=== PATIENT | female | born 1930 | race Caucasian/White ===

== ENCOUNTER 2018-07-18 13:54 | Emergency (ER) | payer MEDICARE ==
--- NOTE | 2018-07-18 14:39 | ER Document Report ---
ED Medical Screen (RME) - General Chief Complaint: Cough Stated Complaint: COUGH Time Seen by Provider: 07/18/18 14:37 Mode of Arrival: Carried Information source: Patient, Relative Notes: 87-year-old female presented to ED for complaint of cough congestion since Monday. She states she was diaphoretic she thought from a fever one night. She states she has been short of breath most of her life because she has a history of asthma and uses an inhaler but is here visiting and did not bring it with her. Patient has a history of asthma pneumonia high blood pressure cholesterol CHF and diabetes. She has also had a hysterectomy back surgery right knee replacement gallbladder removal and appendectomy. Patient is alert oriented respirations regular and unlabored at this time. She is speaking in full sentences. I have greeted and performed a rapid initial assessment of this patient. A comprehensive ED assessment and evaluation of the patient, analysis of test results and completion of medical decision making process will be conducted by an additional ED providers. Dictation of this chart was performed using voice recognition software; therefore, there may be some unintended grammatical errors. TRAVEL OUTSIDE OF THE [place] IN LAST 30 DAYS: No - Related Data Allergies/Adverse Reactions: No Known Allergies Allergy (Unverified 07/18/18 13:55) Past Medical History - Social History Frequency of alcohol use: None Drug Abuse: None - Past Medical History Cardiac Medical History: Reports: Hx Congestive Heart Failure, Hx Hypercholesterolemia, Hx Hypertension Pulmonary Medical History: Reports: Hx Asthma, Hx Pneumonia Endocrine Medical History: Reports: Hx Diabetes Mellitus Type 2 Renal/ Medical History: Denies: Hx Peritoneal Dialysis Past Surgical History: Reports: Hx Appendectomy, Hx Cholecystectomy, Hx Hysterectomy, Hx Orthopedic Surgery - right knee replacement Physical Exam - Vital signs Vitals: Temp Pulse Resp BP Pulse Ox 99.5 F 71 28 H 153/60 H 93 07/18/18 13:59 07/18/18 13:59 07/18/18 13:59 07/18/18 13:59 07/18/18 13:59 Course - Vital Signs Vital signs: Temp Pulse Resp BP Pulse Ox 99.5 F 71 28 H 153/60 H 93 07/18/18 13:59 07/18/18 13:59 07/18/18 13:59 07/18/18 13:59 07/18/18 13:59
--- NOTE | 2018-07-18 15:24 | RADIOLOGY REPORT (SQ) ---
EXAM DESCRIPTION: CHEST 2 VIEWS COMPLETED DATE/TIME: 07/18/2018 3:10 pm REASON FOR STUDY: Cough congested active fever short of breath COMPARISON: None. EXAM PARAMETERS: NUMBER OF VIEWS: two views TECHNIQUE: Digital Frontal and Lateral radiographic views of the chest acquired. RADIATION DOSE: NA LIMITATIONS: none FINDINGS: LUNGS AND PLEURA: No opacities, masses or pneumothorax. No pleural effusion. MEDIASTINUM AND HILAR STRUCTURES: No masses or contour abnormalities. HEART AND VASCULAR STRUCTURES: Massive cardiomegaly BONES: No acute findings. HARDWARE: Clips right upper quadrant post cholecystectomy OTHER: No other significant finding. IMPRESSION: NO ACUTE RADIOGRAPHIC FINDING IN THE CHEST. TECHNICAL DOCUMENTATION: JOB ID: [id number] [employer]- All Rights Reserved Reading location - IP/workstation name: [email or web address]
[2018-07-18 15:37] LABS: ABSOLUTE EOSINOPHILS # (AUTO) 0.1 10^3/uL (0.0-0.6); ABSOLUTE LYMPHOCYTES (AUTO) 1.7 10^3/uL (0.5-4.7); ABSOLUTE MONOCYTES (AUTO) 0.7 10^3/uL (0.1-1.4); ABSOLUTE NEUT (AUTO) 3.9 10^3/uL (1.7-8.2); BASOPHILS % (AUTO) 0.7 % (0-2); EOSINOPHILS % (AUTO) 1.6 % (0-6); HEMATOCRIT 37.9 % (36.0-47.0); HEMOGLOBIN 12.5 g/dL (12.0-15.5); LYMPHOCYTES % (AUTO) 26.1 % (13-45); MEAN CORPUSCULAR HEMOGLOBIN 30.1 pg (27.0-33.4); MEAN CORPUSCULAR HGB CONC 33.1 g/dL (32.0-36.0); MEAN CORPUSCULAR VOLUME 91 fl (80-97); MONOCYTES % (AUTO) 10.8 % (3-13); PLATELET COUNT 198 10^3/uL (150-450); RED BLOOD COUNT 4.16 10^6/uL (3.72-5.28); RED CELL DISTRIBUTION WIDTH 16.3 % (11.5-14.0); SEGMENTED NEUTROPHILS % (AUTO) 60.8 % (42-78); TOTAL CELLS COUNTED % (AUTO) 100 %; WHITE BLOOD COUNT 6.4 10^3/uL (4.0-10.5)
[2018-07-18 15:58] LABS: ALANINE AMINOTRANSFERASE 19 U/L (9-52); ALBUMIN 4.3 g/dL (3.5-5.0); ALKALINE PHOSPHATASE 105 U/L (38-126); ANION GAP 10 (5-19); ASPARTATE AMINO TRANSFERASE 20 U/L (14-36); BILIRUBIN,DIRECT 0.3 mg/dL (0.0-0.4); BILIRUBIN,TOTAL 0.7 mg/dL (0.2-1.3); BLOOD UREA NITROGEN 29 mg/dL (7-20); CALCIUM 9.7 mg/dL (8.4-10.2); CARBON DIOXIDE 26 mmol/L (22-30); CHLORIDE 107 mmol/L (98-107); GLUCOSE 145 mg/dL (75-110); POTASSIUM 4.6 mmol/L (3.6-5.0); SODIUM 143.1 mmol/L (137-145)
[2018-07-18 18:29] VITALS: BP 149/62
[2018-07-18 19:28] LABS: APPEARANCE,URINE SLIGHTLY-CLOUDY; BILIRUBIN,URINE NEGATIVE (NEGATIVE); COLOR,URINE YELLOW; GLUCOSE, URINE NEGATIVE (NEGATIVE); KETONES,URINE NEGATIVE (NEGATIVE); LEUKOCYTE ESTERASE,URINE LARGE (NEGATIVE); NITRITE,URINE NEGATIVE (NEGATIVE); PROTEIN,URINE 100 mg/dL (NEGATIVE); URINE SPECIFIC GRAVITY 1.018; UROBILINOGEN,URINE NEGATIVE mg/dL (<2.0)
== END 2018-07-18 20:30 | disposition left against medical advice (07) ==
LOC: ER 13:54
DX: R05 Cough (principal); J45.909 Unspecified asthma, uncomplicated; T48.906A Underdosing of unspecified agents primarily acting on the respiratory system, initial encounter; Z91.128 Patient's intentional underdosing of medication regimen for other reason; Z91.14 Patient's other noncompliance with medication regimen; R06.02 Shortness of breath; I10 Essential (primary) hypertension; E11.9 Type 2 diabetes mellitus without complications; Z87.01 Personal history of pneumonia (recurrent)
CPT/HCPCS: 36415; 71046; 80053; 81001; 82962; 85025; 87040; 99281

== ENCOUNTER 2018-07-24 14:45 | Emergency (ER) | payer MEDICARE, MEDICAID ==
--- NOTE | 2018-07-24 16:04 | ER Document Report ---
ED Medical Screen (RME) - General Chief Complaint: Shortness Of Breath Stated Complaint: DIFFICULTY BREATHING/COUGH Time Seen by Provider: 07/24/18 15:59 Mode of Arrival: Ambulatory Information source: Patient Notes: Patient presents emergency department with complaints of cough shortness of breath wheeze. Reports symptoms since last week. Reports she was evaluated for the same issues last week but she waited so long she left without treatment. Patient denies fever but reports she had some night sweats. Reports she is coughing up some green sputum. Reports she has used her inhaler without relief of symptoms. I have greeted and performed a rapid initial assessment of this patient. A comprehensive ED assessment and evaluation of the patient, analysis of test results and completion of the medical decision making process will be conducted by additional ED providers. Dictation of this chart was performed using voice recognition software; therefore, there may be some unintended grammatical errors. TRAVEL OUTSIDE OF THE [place] IN LAST 30 DAYS: No - Related Data Allergies/Adverse Reactions: codeine Allergy (Verified 07/24/18 14:52) Past Medical History - Social History Frequency of alcohol use: None Drug Abuse: None - Past Medical History Cardiac Medical History: Reports: Hx Congestive Heart Failure, Hx Hypercholesterolemia, Hx Hypertension Pulmonary Medical History: Reports: Hx Asthma, Hx Pneumonia Endocrine Medical History: Reports: Hx Diabetes Mellitus Type 2 Renal/ Medical History: Denies: Hx Peritoneal Dialysis Past Surgical History: Reports: Hx Appendectomy, Hx Cholecystectomy, Hx Hysterectomy, Hx Orthopedic Surgery - right knee replacement Physical Exam - Vital signs Vitals: Temp Pulse Resp BP Pulse Ox 98.1 F 63 28 H 152/53 H 94 07/24/18 15:17 07/24/18 15:17 07/24/18 15:17 07/24/18 15:17 07/24/18 15:17 Course - Vital Signs Vital signs: Temp Pulse Resp BP Pulse Ox 98.1 F 63 28 H 152/53 H 94 07/24/18 15:17 07/24/18 15:17 07/24/18 15:17 07/24/18 15:17 07/24/18 15:17
[2018-07-24 16:25] LABS: ABSOLUTE EOSINOPHILS # (AUTO) 0.1 10^3/uL (0.0-0.6); ABSOLUTE LYMPHOCYTES (AUTO) 2.5 10^3/uL (0.5-4.7); ABSOLUTE MONOCYTES (AUTO) 0.5 10^3/uL (0.1-1.4); ABSOLUTE NEUT (AUTO) 3.4 10^3/uL (1.7-8.2); BASOPHILS % (AUTO) 0.5 % (0-2); EOSINOPHILS % (AUTO) 2.1 % (0-6); HEMATOCRIT 37.4 % (36.0-47.0); HEMOGLOBIN 12.4 g/dL (12.0-15.5); LYMPHOCYTES % (AUTO) 37.8 % (13-45); MEAN CORPUSCULAR HEMOGLOBIN 30.2 pg (27.0-33.4); MEAN CORPUSCULAR HGB CONC 33.2 g/dL (32.0-36.0); MEAN CORPUSCULAR VOLUME 91 fl (80-97); MONOCYTES % (AUTO) 7.8 % (3-13); PLATELET COUNT 257 10^3/uL (150-450); RED BLOOD COUNT 4.12 10^6/uL (3.72-5.28); RED CELL DISTRIBUTION WIDTH 16.1 % (11.5-14.0); SEGMENTED NEUTROPHILS % (AUTO) 51.8 % (42-78); TOTAL CELLS COUNTED % (AUTO) 100 %; WHITE BLOOD COUNT 6.5 10^3/uL (4.0-10.5)
--- NOTE | 2018-07-24 16:37 | RADIOLOGY REPORT (SQ) ---
EXAM DESCRIPTION: CHEST 2 VIEWS COMPLETED DATE/TIME: 07/24/2018 4:28 pm REASON FOR STUDY: cough sob COMPARISON: 07/18/2018. NUMBER OF VIEWS: Two view. TECHNIQUE: Frontal and lateral radiographic views of the chest acquired. LIMITATIONS: None. FINDINGS: LUNGS AND PLEURA: No opacities, masses or pneumothorax. No pleural effusion. MEDIASTINUM AND HILAR STRUCTURES: No masses. No contour abnormalities. HEART AND VASCULAR STRUCTURES: Heart enlarged without failure. Aorta normal for age. BONES: No acute findings. Degenerative changes in the spine. HARDWARE: Clips in the upper abdomen. OTHER: No other significant finding. IMPRESSION: CARDIAC ENLARGEMENT WITHOUT FAILURE. TECHNICAL DOCUMENTATION: JOB ID: [id number] [employer]- All Rights Reserved Reading location - IP/workstation name: [email or web address]
[2018-07-24 16:46] LABS: ALANINE AMINOTRANSFERASE 20 U/L (9-52); ALBUMIN 4.2 g/dL (3.5-5.0); ALKALINE PHOSPHATASE 103 U/L (38-126); ANION GAP 8 (5-19); ASPARTATE AMINO TRANSFERASE 19 U/L (14-36); BILIRUBIN,DIRECT 0.3 mg/dL (0.0-0.4); BILIRUBIN,TOTAL 0.4 mg/dL (0.2-1.3); BLOOD UREA NITROGEN 35 mg/dL (7-20); CALCIUM 10.1 mg/dL (8.4-10.2); CARBON DIOXIDE 26 mmol/L (22-30); CHLORIDE 109 mmol/L (98-107); CREATINE KINASE 31 U/L (30-135); GLUCOSE 192 mg/dL (75-110); POTASSIUM 4.8 mmol/L (3.6-5.0); SODIUM 142.9 mmol/L (137-145); TOTAL PROTEIN 6.9 g/dL (6.3-8.2)
[2018-07-24] MEDS ORDERED: IPRATROPIUM/ALBUTEROL 0.5-2.5 MG/3 ML AMPUL NEB ONE (18:45)
[2018-07-24] MEDS ORDERED: METHYLPREDNISOLONE ACETATE INJ 40 MG/1 ML ML IM ONE (18:45)
--- NOTE | 2018-07-24 19:03 | EKG REPORT ---
SEVERITY:- ABNORMAL ECG - SINUS RHYTHM FIRST DEGREE AVB. LEFT BUNDLE BRANCH BLOCK : Confirmed by: Joe Lopez MD 24-Jul-2018 19:02:24
--- NOTE | 2018-07-24 20:25 | ER Document Report ---
ED General - General Chief Complaint: Shortness Of Breath Stated Complaint: DIFFICULTY BREATHING/COUGH Time Seen by Provider: 07/24/18 15:59 Primary Care Provider: FAIZAN RAMOS MD [ACTIVE STAFF] - Follow up in 3-5 days (or your primary care. ) Mode of Arrival: Ambulatory Notes: Patient is a 87-year-old female with asthma that presents to the emergency department for chief complaint of shortness of breath and congestion. Patient states she is been having a cough, mucus production and sputum production over the past few days, is gotten progressively worse. She did come to the emergency department this past Monday when she was having some of the symptoms, but did not stay to be seen. She has had some wheezing associated states she does have asthma and has an albuterol inhaler, which she has used a few times, but not on a regular basis. She denies being on any steroid inhalers, not wear oxygen at home. Denies any fevers, chills, night sweats, nausea, vomiting, chest pain, dysuria or hematuria. Past Medical History: Diabetes mellitus, asthma Past Surgical History: Back surgery, cholecystectomy, hysterectomy Social History: Denies tobacco, alcohol or illicit drug use. Family History: Reviewed and noncontributory for presenting illness Allergies: Reviewed, see documented allergy list. REVIEW OF SYSTEMS: Other than noted above, the 12 point review of systems was reviewed with the patient and were negative, all pertinent findings are included in the HPI. PHYSICAL EXAMINATION: Vital signs reviewed, nursing noted reviewed. GENERAL: Elderly female, no acute distress HEAD: Atraumatic, normocephalic. EYES: Eyes appear normal, extraocular movements intact, sclera anicteric, conjunctiva are normal. ENT: nares patent, oropharynx clear without exudates. Moist mucous membranes. NECK: Normal range of motion, supple without lymphadenopathy LUNGS: Bilateral wheezing noted throughout all lung garcia, no acute respiratory distress, no rales or crackles noted. HEART: Regular rate and rhythm without murmurs ABDOMEN: Soft, nontender, normoactive bowel sounds. No rebound, guarding, or rigidity. No masses appreciated. EXTREMITIES: Nontender, good range of motion, trace pedal edema bilaterally. NEUROLOGICAL: No focal neurological deficits. Moves all extremities spontaneously Motor and sensory grossly intact on exam. PSYCH: Normal mood, normal affect. SKIN: Warm, Dry, normal turgor, no rashes or lesions noted on exposed skin TRAVEL OUTSIDE OF THE [place] IN LAST 30 DAYS: No - Related Data Allergies/Adverse Reactions: codeine Allergy (Verified 07/24/18 14:52) Past Medical History - General Information source: Patient - Social History Smoking Status: Never Smoker Frequency of alcohol use: None Drug Abuse: None Family History: Reviewed & Not Pertinent Patient has suicidal ideation: No Patient has homicidal ideation: No - Past Medical History Cardiac Medical History: Reports: Hx Congestive Heart Failure, Hx Hy percholesterolemia, Hx Hypertension Pulmonary Medical History: Reports: Hx Asthma, Hx Pneumonia Endocrine Medical History: Reports: Hx Diabetes Mellitus Type 2 Renal/ Medical History: Denies: Hx Peritoneal Dialysis Past Surgical History: Reports: Hx Appendectomy, Hx Cholecystectomy, Hx Hysterectomy, Hx Orthopedic Surgery - right knee replacement Physical Exam - Vital signs Vitals: Temp Pulse Resp BP Pulse Ox 98.1 F 63 28 H 152/53 H 94 07/24/18 15:17 07/24/18 15:17 07/24/18 15:17 07/24/18 15:17 07/24/18 15:17 Course - Re-evaluation Re-evalutation: Patient seen and examined vital signs reviewed. Laboratory data and/or imaging were ordered as appropriate for the patient's presenting symptoms and complaint, with consideration of any critical or life threatening conditions that may be associated with their obtained history and ex am as noted above. Patient was treated with DuoNeb breathing treatments, and IM Depo-Medrol, given the patient's diabetic, did not want to place her on prednisone and risk fluctuations in her glucose numbers, but I did advised her that her glucose could go up, and she should be monitoring her sugar at home closely. Results were reviewed when available and demonstrated negative chest x-ray for infiltrative process, blood work was essentially unremarkable, EKG was nonischemic pattern. The patient was re-evaluated and was stable, and much improved, lung sounds improved and she felt overall much better. Evaluation was most consistent with acute exacerbation of asthma, will discharge the patient home with a spacer, advised using her albuterol 4 times daily for the next 5 days and to follow-up with her primary care. Results were discussed with the patient at this point, after careful cons ideration I feel that that patient can be discharged from the emergency department, the patient was educated treatments and reasons to return to the emergency department based on their presumed diagnosis as noted above, they were advised to followup with a primary care physician in 2-3 days. Patient was agreeable to plan of care. *Note is created using voice recognition software and may contain spelling, syntax or grammatical errors. Laboratory 07/24/18 07/24/18 07/24/18 16:12 16:12 16:12 WBC 6.5 RBC 4.12 Hgb 12.4 Hct 37.4 MCV 91 MCH 30.2 MCHC 33.2 RDW 16.1 H Plt Count 257 Seg Neutrophils % 51.8 Lymphocytes % 37.8 Monocytes % 7.8 Eosinophils % 2.1 Basophils % 0.5 Absolute Neutrophils 3.4 Absolute Lymphocytes 2.5 Absolute Monocytes 0.5 Absolute Eosinophils 0.1 Absolute Basophils 0.0 Sodium 142.9 Potassium 4.8 Chloride 109 H Carbon Dioxide 26 Anion Gap 8 BUN 35 H Creatinine 1.39 H Est GFR ( Amer) 43 L Est GFR (Non-Af Amer) 36 L Glucose 192 H Calcium 10.1 Total Bilirubin 0.4 Direct Bilirubin 0.3 Neonat Total Bilirubin Not Reportable Neonat Direct Bilirubin Not Reportable Neonat Indirect Bili Not Reportable AST 19 ALT 20 Alkaline Phosphatase 103 Creatine Kinase 31 Troponin I 0.019 Total Protein 6.9 Albumin 4.2 Chest X-Ray 07/24/18 16:03 IMPRESSION: CARDIAC ENLARGEMENT WITHOUT FAILURE. - Vital Signs Vital signs: Temp Pulse Resp BP Pulse Ox 98.1 F 59 L 20 137/76 H 99 07/24/18 18:20 07/24/18 18:20 07/24/18 18:20 07/24/18 18:20 07/24/18 18:20 - Laboratory Result Diagrams: 07/24/18 16:12 07/24/18 16:12 Laboratory results interpreted by me: 07/24/18 07/24/18 16:12 16:12 RDW 16.1 H Chloride 109 H BUN 35 H Creatinine 1.39 H Est GFR ( Amer) 43 L Est GFR (Non-Af Amer) 36 L Glucose 192 H - EKG Interpretation by Me Additional EKG results interpreted by me: EKG demonstrates sinus rhythm with first-degree AV block, with a ventricular rate of 85 bpm, presence of left bundle branch block, QTC prolonged at 562 ms and left axis deviation, no ST elevation present. No prior for comparison. Discharge - Discharge Clinical Impression: Acute asthma exacerbation Qualifiers: Asthma severity: unspecified severity Asthma persistence: unspecified Qualified Code(s): J45.901 - Unspecified asthma with (acute) exacerbation Condition: Stable Disposition: HOME, SELF-CARE Instructions: Asthma ([facility]) Additional Instructions: Please use your albuterol inhaler, 2 puffs 4 times daily for the next 5 days, and then every 4 hours as needed after that. Use the spacer with this, when you are using the spacer, take 6 to 8 breaths, after actuating the inhaler. If your symptoms are not improving over the next 24 to 48 hours, do not hesitate to return to the emergency department immediately, otherwise please follow-up with your primary care physician in the next 2 to 3 days. Referrals: FAIZAN RAMOS MD [ACTIVE STAFF] - Follow up in 3-5 days (or your primary care. )
[2018-07-24 20:51] VITALS: BP 149/42
== END 2018-07-24 20:50 | disposition home or self-care (01) ==
LOC: ER 14:45
DX: J45.901 Unspecified asthma with (acute) exacerbation (principal); I50.9 Heart failure, unspecified; E78.00 Pure hypercholesterolemia, unspecified; I11.0 Hypertensive heart disease with heart failure; E11.9 Type 2 diabetes mellitus without complications; Z90.49 Acquired absence of other specified parts of digestive tract; Z90.710 Acquired absence of both cervix and uterus; Z96.651 Presence of right artificial knee joint; Z88.6 Allergy status to analgesic agent
CPT/HCPCS: 93005; 94640; 99285; 96372; 36415; 82550; 85025; 80053; 84484; 71046; 93010; J1030; A9270; J7620

== ENCOUNTER 2019-10-21 22:11 | Inpatient (IN) | payer MEDICARE, MEDICAID ==
[2019-10-21] MEDS ORDERED: METHYLPREDNISOLONE INJ 125 MG/2 ML SDV IV ONE (22:42)
[2019-10-21] MEDS ORDERED: IPRATROPIUM/ALBUTEROL 0.5-2.5 MG/3 ML AMPUL NEB ONE (22:43)
[2019-10-21 22:45] LABS: ABSOLUTE BASOPHILS # (AUTO) 0.1 10^3/uL (0.0-0.2); ABSOLUTE EOSINOPHILS # (AUTO) 0.2 10^3/uL (0.0-0.6); ABSOLUTE LYMPHOCYTES (AUTO) 2.1 10^3/uL (0.5-4.7); ABSOLUTE MONOCYTES (AUTO) 0.7 10^3/uL (0.1-1.4); ABSOLUTE NEUT (AUTO) 6.1 10^3/uL (1.7-8.2); BASOPHILS % (AUTO) 1.4 % (0-2); EOSINOPHILS % (AUTO) 1.7 % (0-6); HEMATOCRIT 38.5 % (36.0-47.0); HEMOGLOBIN 13.1 g/dL (12.0-15.5); LYMPHOCYTES % (AUTO) 22.7 % (13-45); MEAN CORPUSCULAR HEMOGLOBIN 31.3 pg (27.0-33.4); MEAN CORPUSCULAR HGB CONC 34.2 g/dL (32.0-36.0); MEAN CORPUSCULAR VOLUME 92 fl (80-97); MONOCYTES % (AUTO) 7.4 % (3-13); PLATELET COUNT 225 10^3/uL (150-450); RED CELL DISTRIBUTION WIDTH 15.5 % (11.5-14.0); SEGMENTED NEUTROPHILS % (AUTO) 66.8 % (42-78); TOTAL CELLS COUNTED % (AUTO) 100 %; WHITE BLOOD COUNT 9.1 10^3/uL (4.0-10.5)
[2019-10-21] MEDS ORDERED: MAGNESIUM SULFATE/D5W 1 GM/100 ML RTUPB IV ONE (22:45)
--- NOTE | 2019-10-21 22:48 | ER Document Report ---
ED General - General Chief Complaint: Shortness Of Breath Stated Complaint: SHORTNESS OF BREATH Time Seen by Provider: 10/21/19 22:25 TRAVEL OUTSIDE OF THE [place] IN LAST 30 DAYS: No - HPI Notes: Patient is an 89-year-old female with a history of asthma who presents to the emergency department for evaluation of shortness of breath. She states that has been ongoing for the last week, but worse for the last 3 days. No fevers or chills. No nausea or vomiting. She has chronic pain in her legs which she states is no different. She describes it as an aching, states is a 3 out of 5. She has been taking her medications as prescribed. - Related Data Allergies/Adverse Reactions: codeine Allergy (Verified 07/24/18 14:52) Home Medications: Neurontin, Zantac, spironolactone, amlodipine, Lexapro, methotrexate, Coreg, pantoprazole, folate, Levemir, NovoLog Past Medical History - General Information source: Patient - Social History Smoking Status: Never Smoker Drug Abuse: None Family History: Reviewed & Not Pertinent - Past Medical History Cardiac Medical History: Reports: Hx Congestive Heart Failure, Hx Hypercholesterolemia, Hx Hypertension Pulmonary Medical History: Reports: Hx Asthma, Hx Pneumonia Endocrine Medical History: Reports: Hx Diabetes Mellitus Type 2 Renal/ Medical History: Denies: Hx Peritoneal Dialysis Past Surgical History: Reports: Hx Appendectomy, Hx Cholecystectomy, Hx Hysterectomy, Hx Orthopedic Surgery - right knee replacement Review of Systems - Review of Systems Constitutional: No symptoms reported EENT: No symptoms reported Cardiovascular: No symptoms reported Respiratory: See HPI Gastrointestinal: No symptoms reported Genitourinary: No symptoms reported Musculoskeletal: See HPI Skin: No symptoms reported Neurological/Psychological: No symptoms reported Physical Exam - Vital signs Vitals: Temp Resp BP Pulse Ox 98.4 F 20 166/63 H 99 10/21/19 22:18 10/21/19 22:18 10/21/19 22:18 10/21/19 22:18 - Notes Notes: This is an 89-year-old female who appears her stated age, in a moderate amount of distress. She is tachypneic with increased use of accessory muscles and work of breathing. Vital signs reviewed, please refer to chart. Head is normocephalic, atraumatic. Pupils equal round, reactive to light. Neck is supple without meningismus. Heart is irregularly irregular. Lungs reveal diminished expiratory sounds, wheezes in the right base. Abdomen is soft, nontender, normoactive bowel sounds throughout. Extremities without cyanosis, clubbing. Posterior calves are nontender. Peripheral pulses are equal. Skin is warm and dry. Patient is awake, alert, neurological exam is nonfocal. Course - Re-evaluation Re-evalutation: 10/21/19 22:48 Patient presents to the emergency department for evaluation. Laboratory investi gations are ordered. 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 Due to her increased work of breathing, I did order BiPAP. She is ordered magnesium and a DuoNeb, as well as Solu-Medrol. She is currently stable, we will continue to monitor. 10/22/19 03:01 Clinically patient did have some improvement for some time. She came off of the BiPAP. Decision was made to trend out her troponins that she did have very mild elevation. During the course of waiting, the patient tried to speak and reposition herself in the bed. At that point she became more acutely short of breath. Decision was made to place the patient back on BiPAP. Her troponin did trend up mildly, but not significantly. I do believe this indeterminately elevated troponin is secondary to a troponin leak/intermittent atrial fibrillation. I will treat her with Lovenox. I spoke with Dr. Cox, who will admit the patient for further care. 10/22/19 03:04 Please note the regarding the x-ray, I did read that radiology interpreted this airspace disease bilaterally. I do not have an indication that this is pneumonia. The patient has had a very minimal dry cough that started on this evening. She denies any fevers. She has no leukocytosis. I suspect this is all secondary to her asthma and some mild fluid overload from new onset atrial fibrillation. - Vital Signs Vital signs: Temp Pulse Resp BP Pulse Ox 98.4 F 21 H 167/50 H 96 10/21/19 22:18 10/22/19 02:01 10/22/19 02:01 10/22/19 02:01 - Laboratory Result Diagrams: 10/21/19 22:27 10/21/19 22:27 Laboratory results interpreted by me: 10/21/19 10/21/19 10/21/19 22:27 22:27 22:27 RDW 15.5 H BUN 27 H Creatinine 1.40 H Est GFR ( Amer) 43 L Est GFR (MDRD) Non-Af 35 L Glucose 138 H NT-Pro-B Natriuret Pep 5830 H - Diagnostic Test Radiology reviewed: Image reviewed, Reports reviewed Radiology results interpreted by me: 10/22/19 03:04 Chest X-Ray 10/21/19 22:23 IMPRESSION: Cardiomegaly with bibasilar airspace opacities. copyright 2010 [id number]- All Rights Reserved - EKG Interpretation by Me Additional EKG results interpreted by me: 10/22/19 03:05 Atrial fibrillation with a rate of 124 bpm. Left axis deviation. Left bundle branch block. There is a change from prior study, and that last study showed sinus mechanism. Discharge - Discharge Clinical Impression: New onset atrial fibrillation Acute asthma exacerbation Qualifiers: Asthma severity: moderate Condition: Stable Disposition: ADMITTED INPATIENT Admitting Provider: Brooke (Hospitalist) Unit Admitted: Telemetry
[2019-10-21 22:56] LABS: ALBUMIN 4.7 g/dL (3.5-5.0); ALKALINE PHOSPHATASE 96 U/L (38-126); ANION GAP 9 (5-19); ASPARTATE AMINO TRANSFERASE 29 U/L (14-36); BILIRUBIN,DIRECT 0.3 mg/dL (0.0-0.4); BILIRUBIN,TOTAL 0.8 mg/dL (0.2-1.3); BLOOD UREA NITROGEN 27 mg/dL (7-20); CALCIUM 9.9 mg/dL (8.4-10.2); CARBON DIOXIDE 26 mmol/L (22-30); CHLORIDE 106 mmol/L (98-107); GLUCOSE 138 mg/dL (75-110); TOTAL PROTEIN 7.7 g/dL (6.3-8.2)
--- NOTE | 2019-10-21 23:03 | RADIOLOGY REPORT (SQ) ---
EXAM DESCRIPTION: XR CHEST 1 VIEW COMPLETED DATE/TME: 10/21/2019 22:23 CLINICAL HISTORY: 89 years, Female, sob COMPARISON: [id number] chest NUMBER OF VIEWS: 1 TECHNIQUE: Portable chest LIMITATIONS: None. FINDINGS: Cardiomegaly. Osteopenia. Atheromatous change of the thoracic aorta. No pneumothorax. Hazy opacities over each lung base. IMPRESSION: Cardiomegaly with bibasilar airspace opacities. copyright 2010 [employer]- All Rights Reserved
[2019-10-21 23:17] LABS: TROPONIN I 0.035 ng/mL
[2019-10-22] MEDS ORDERED: ENOXAPARIN SODIUM INJ 80 MG/0.8 ML DISP.SYRIN SUBCUT ONE (03:09)
--- NOTE | 2019-10-22 03:41 | PDOC H&P ---
History of Present Illness Admission Date/PCP: 10/22/19 03:15 History of Present Illness: LISS BHAGAT is a 89 year old female past medical history of CHF, hypertension, diabetes, COPD, who is visiting out of town per family, presenting to ED complaining of progressively worsening shortness of breath, for the last several days. She has also noted that her left lower extremity is swelling more than usual. In ED patient was noted to be tachypneic, hypoxic, elevated BNP and mildly elevated troponins, and A. fib RVR, patient was started on breathing treatments however patient was noted to drop her PO2 once off of BiPAP. Hospital was consulted for admission. On my encounter patient is comfortably sitting bed no apparent distress, wearing BiPAP, alert and oriented, very pleasant and cooperative with physical examination, patient is stating that she gets frequent hospitalization for CHF exacerbation but this time she feels more short of breath, she is stating that for some reason she is taken off of aspirin because she was told by her athletic monitor that she does not need it, she said that she has some kind of heart rhythm problem however not sure if she has history of A. fib RVR, patient is stating that she is on several medication however does not recall the names, she is seeing a athletic monitor Past Medical History Cardiac Medical History: Reports: Congestive Heart Failure, Hyperlipidema, Hypertension Pulmonary Medical History: Reports: Asthma, Pneumonia Endocrine Medical History: Reports: Diabetes Mellitus Type 2 Past Surgical History Past Surgical History: Reports: Appendectomy, Cholecystectomy, Hysterectomy, Orthopedic Surgery - right knee replacement Social History Smoking Status: Never Smoker Family History Family History: Reviewed & Not Pertinent Parental Family History Reviewed: Yes Children Family History Reviewed: Yes Sibling(s) Family History Reviewed.: Yes Medication/Allergy Allergies/Adverse Reactions: codeine Allergy (Verified 07/24/18 14:52) Review of Systems Review of Systems: as per hpi Physical Exam Vital Signs: Temp Pulse Resp BP Pulse Ox 98.4 F 21 H 167/50 H 96 10/21/19 22:18 10/22/19 02:01 10/22/19 02:01 10/22/19 02:01 Intake & Output 10/20/19 10/21/19 10/22/19 06:59 06:59 06:59 Intake Total 100 Balance 100 Weight 76.1 kg General appearance: PRESENT: obese Respiratory exam: PRESENT: crackles, wheezes. ABSENT: rales, rhonchi Cardiovascular exam: PRESENT: RRR. ABSENT: diastolic murmur, rubs, systolic murmur GI/Abdominal exam: PRESENT: normal bowel sounds, soft. ABSENT: distended, guarding, mass, organolmegaly, rebound, tenderness Neurological exam: PRESENT: alert, awake, oriented to person, oriented to place, oriented to time, oriented to situation, CN II-XII grossly intact. ABSENT: motor sensory deficit Results Laboratory Results: 10/21/19 22:27 10/21/19 22:27 10/21/19 10/21/19 22:27 22:27 WBC 9.1 RBC 4.20 Hgb 13.1 Hct 38.5 MCV 92 MCH 31.3 MCHC 34.2 RDW 15.5 H Plt Count 225 Seg Neutrophils % 66.8 Sodium 140.9 Potassium 5.0 Chloride 106 Carbon Dioxide 26 Anion Gap 9 BUN 27 H Creatinine 1.40 H Est GFR ( Amer) 43 L Glucose 138 H Calcium 9.9 Total Bilirubin 0.8 AST 29 Alkaline Phosphatase 96 Total Protein 7.7 Albumin 4.7 10/21/19 10/22/19 22:27 01:46 Troponin I 0.035 0.038 NT-Pro-B Natriuret Pep 5830 H Impressions: Chest X-Ray 10/21/19 22:23 IMPRESSION: Cardiomegaly with bibasilar airspace opacities. copyright 2010 [employer]- All Rights Reserved Assessment and Plan - Diagnosis (1) New onset atrial fibrillation Is this a current diagnosis for this admission?: Yes Plan: Paroxysmal, likely due to acute CHF and COPD exacerbation. Not sure if this is acute onset as patient is stating that she does have some history of heart rhythm problem but does not remember what. She is not on chronic anticoagulation and is stating that she was taken off of aspirin by her athletic monitor was told that she does not need it anymore. Will need to get medical records. Will admit to telemetry, start on therapeutic Lovenox, beta-blockers, treat underlying acute respiratory failure. We will consult cardiology. (2) Acute exacerbation of CHF (congestive heart failure) Qualifiers: Heart failure type: systolic Qualified Code(s): I50.23 - Acute on chronic systolic (congestive) heart failure Is this a current diagnosis for this admission?: Yes Plan: Patient endorse history of CHF and frequent hospitalization for her CHF. Denies any chest pain, presented with shortness of breath mildly elevated troponins and BNP. Admit to telemetry, IV diuretics, cardiac diet, beta-blockers, EMMA. (3) Diabetes Qualifiers: Diabetes mellitus type: type 2 Is this a current diagnosis for this admission?: Yes Plan: Diabetic diet, long-acting insulin, sliding scale insulin, Accu-Chek, hypoglycemia protocol. (4) Elevated troponin Is this a current diagnosis for this admission?: Yes Plan: Denies any chest pain. No acute EKG changes. Likely due to demand mismatch. Admit to telemetry, p.o. aspirin, trend troponins, beta-blockers, EMMA, statins. (5) Acute kidney injury superimposed on CKD Is this a current diagnosis for this admission?: Yes Plan: Prerenal, likely due to low p.o. intake. Monitor electrolytes and volume status. Replace electrolytes as needed. Avoid nephrotoxic meds. (6) Acute respiratory failure with hypoxia Is this a current diagnosis for this admission?: Yes Plan: Likely due to acute CHF exacerbation complicated by underlying COPD. Plan as per above. - Time Time Spent with patient: 35 or more minutes Medications reviewed and adjusted accordingly: Yes Anticipated Discharge Disposition: Home with Home Health Anticipated Discharge Timeframe: within 36 hours
[2019-10-22] MEDS ORDERED: METOPROLOL TARTRATE PF/INJ 5 MG/5 ML SDV IV PRN (03:43)
[2019-10-22] MEDS ORDERED: TEMAZEPAM 7.5 MG CAPSULE PO PRN (03:44)
[2019-10-22] MEDS ORDERED: ONDANSETRON HCL INJ/PF 4 MG/2 ML SDV IV PRN (03:44)
[2019-10-22] MEDS ORDERED: MAGNESIUM HYDROXIDE SUSP 30 ML UDCUP PO PRN (03:44)
[2019-10-22] MEDS: METHYLPREDNISOLONE INJ 40 MG/1 ML SDV IV SCH ×3 (06:08→21:15)
[2019-10-22] MEDS ORDERED: IPRATROPIUM/ALBUTEROL 0.5-2.5 MG/3 ML AMPUL NEB PRN (06:32)
--- NOTE | 2019-10-22 06:35 | EKG REPORT ---
SEVERITY:- ABNORMAL ECG - ATRIAL FLUTTER, A-RATE 224 LEFT BUNDLE BRANCH BLOCK : Confirmed by: Joe Lopez MD 22-Oct-2019 06:35:44
[2019-10-22] MEDS ORDERED: IPRATROPIUM/ALBUTEROL 0.5-2.5 MG/3 ML AMPUL NEB SCH (08:00)
[2019-10-22] MEDS: IPRATROPIUM/ALBUTEROL 0.5-2.5 MG/3 ML AMPUL NEB SCH ×3 (08:20→20:17)
[2019-10-22 09:11] LABS: APPEARANCE,URINE SLIGHTLY-CLOUDY; BILIRUBIN,URINE NEGATIVE (NEGATIVE); COLOR,URINE YELLOW; GLUCOSE, URINE 50 mg/dL (NEGATIVE); KETONES,URINE NEGATIVE (NEGATIVE); LEUKOCYTE ESTERASE,URINE MODERATE (NEGATIVE); NITRITE,URINE NEGATIVE (NEGATIVE); PROTEIN,URINE 100 mg/dL (NEGATIVE); URINE SPECIFIC GRAVITY 1.017; UROBILINOGEN,URINE NEGATIVE mg/dL (<2.0)
[2019-10-22] MEDS ORDERED: INSULIN REG, HUMAN 100 UNIT/ML 3 ML VIAL (PYX) ONE (09:33)
[2019-10-22] MEDS: FUROSEMIDE INJ/PF 20 MG/2 ML SDV IV SCH (09:35)
[2019-10-22] MEDS: ASPIRIN 81 MG TABLET, CHEWABLE PO SCH (09:36)
[2019-10-22] MEDS: FAMOTIDINE 20 MG TABLET PO SCH (09:36)
[2019-10-22] MEDS: DOCUSATE SODIUM 100 MG CAPSULE PO SCH (09:36)
[2019-10-22] MEDS ORDERED: GLUCAGON,HUMAN RECOMB 1 MG INJ IM PRN (10:00)
[2019-10-22] MEDS ORDERED: DEXTROSE 50%-WATER SYRINGE 25 GM/50 ML DOSE IV PRN (10:00)
[2019-10-22] MEDS ORDERED: DEXTROSE 40% GEL 15 GM TUBE X 2 PO PRN (10:00)
[2019-10-22] MEDS ORDERED: FAMOTIDINE 20 MG TABLET PO SCH (10:00)
[2019-10-22] MEDS ORDERED: DEXTROSE 50%-WATER SYRINGE 12.5 GM/25 ML DOSE IV PRN (10:00)
[2019-10-22] MEDS ORDERED: DEXTROSE 40% GEL 15 GM TUBE PO PRN (10:00)
[2019-10-22] MEDS: INSULIN REG, HUMAN 100 UNIT/ML 3 ML VIAL (PYX) SUBCUT SCH ×2 (11:36→16:12)
--- NOTE | 2019-10-22 14:11 | PDOC PROGRESS REPORT ---
Subjective Progress Note for:: 10/22/19 Subjective:: Resting with nasal cannula in place. Appears comfortable at complete rest. Accu-Cheks have been very high. Reason For Visit: ACUTE RESPIRATORY FAILURE,ACUTE CHF EXACERBATION, Physical Exam Vital Signs: Temp Pulse Resp BP Pulse Ox 97.8 F 66 16 131/46 H 100 10/22/19 13:00 10/22/19 13:00 10/22/19 13:00 10/22/19 13:00 10/22/19 13:00 Intake & Output 10/21/19 10/22/19 10/23/19 06:59 06:59 06:59 Intake Total 100 520 Balance 100 520 Weight 76.1 kg General appearance: PRESENT: cooperative, mild distress, well-developed Head exam: PRESENT: atraumatic, normocephalic Ear exam: PRESENT: normal external ear exam. ABSENT: bleeding, drainage Mouth exam: PRESENT: moist, tongue midline Respiratory exam: PRESENT: rales - Both bases. Right greater than left, symmetrical, unlabored. ABSENT: rhonchi, tachypnea, wheezes Cardiovascular exam: PRESENT: RRR, +S1, +S2, systolic murmur GI/Abdominal exam: PRESENT: normal bowel sounds, soft. ABSENT: distended, guar ding, tenderness Rectal exam: PRESENT: deferred Extremities exam: ABSENT: pedal edema Neurological exam: PRESENT: alert, awake, oriented to person, oriented to place, oriented to time, oriented to situation, CN II-XII grossly intact. ABSENT: altered Psychiatric exam: PRESENT: appropriate affect. ABSENT: agitated, anxious Focused psych exam: ABSENT: delusional, paranoid, restlessness Skin exam: PRESENT: dry, normal color, warm. ABSENT: rash Results Laboratory Results: 10/21/19 22:27 10/21/19 22:27 10/21/19 10/21/19 10/22/19 22:27 22:27 09:00 WBC 9.1 RBC 4.20 Hgb 13.1 Hct 38.5 MCV 92 MCH 31.3 MCHC 34.2 RDW 15.5 H Plt Count 225 Seg Neutrophils % 66.8 Sodium 140.9 Potassium 5.0 Chloride 106 Carbon Dioxide 26 Anion Gap 9 BUN 27 H Creatinine 1.40 H Est GFR ( Amer) 43 L Glucose 138 H Calcium 9.9 Total Bilirubin 0.8 AST 29 Alkaline Phosphatase 96 Total Protein 7.7 Albumin 4.7 Urine Color YELLOW Urine Appearance SLIGHTLY-CLOUDY Urine pH 5.0 Ur Specific [place] 1.017 Urine Protein 100 H Urine Glucose (UA) 50 H Urine Ketones NEGATIVE Urine Blood SMALL H Urine Nitrite NEGATIVE Ur Leukocyte Esterase MODERATE H Urine WBC (Auto) 8 Urine RBC (Auto) 1 10/21/19 10/22/19 10/22/19 22:27 01:46 05:50 Troponin I 0.035 0.038 0.030 NT-Pro-B Natriuret Pep 5830 H Impressions: Chest X-Ray 10/21/19 22:23 IMPRESSION: Cardiomegaly with bibasilar airspace opacities. copyright 2010 [facility]- All Rights Reserved Assessment and Plan - Diagnosis (1) Acute respiratory failure with hypoxia Is this a current diagnosis for this admission?: Yes Plan: The patient required a short window of BiPAP therapy earlier today. She remains on oxygen. Nursing reports that she is extremely fatigued with minimal exertion and has desaturated with any attempts of room air. She will likely qualify for home oxygen therapy. They will try and perform a walking oximetry. (2) Acute on chronic combined systolic (congestive) and diastolic (congestive) heart failure Is this a current diagnosis for this admission?: Yes Plan: We were able to obtain her echocardiogram from [facility]. It showed an abnormal ejection fraction of only 50% and grade 1/4 diastolic dysfunction. She is on spironolactone, carvedilol, furosemide and Norvasc. I am going to discontinue the Norvasc and start low-dose lisinopril. We will need to monitor renal function on the EMMA inhibitor. (3) Acute exacerbation of COPD with asthma Is this a current diagnosis for this admission?: Yes Plan: The patient is on Symbicort at home. Here she is on intravenous Solu-Medrol which will require close monitoring of her Accu-Cheks and insulin requirements. She is also on scheduled nebulizers. She can return to her Symbicort after discharge. She might also need Spiriva. We are obtaining a pulse oximetry study but I firmly believe she will easily qualify for home oxygen therapy. (4) New onset atrial fibrillation Is this a current diagnosis for this admission?: Yes Plan: Currently with excellent rate control on carvedilol. She is also on renally adjusted apixaban 2.5 mg twice daily. (5) Hyperglycemia due to diabetes mellitus Is this a current diagnosis for this admission?: Yes Plan: Now that long-acting and pre-meal insulin doses are established her Accu-Cheks are in the 200s. As she tapers off of steroids this will improve as well. Continue Accu-Cheks, baseline diabetes regimen as well as sliding scale coverage. (6) Acute kidney injury superimposed on CKD Is this a current diagnosis for this admission?: Yes Plan: It appears that she may have had stage III chronic kidney disease previously. With her history of diabetes this is not an unreasonable assumption. She is currently at a GFR of only 35. We will continue to try and improve this. Hopefully low-dose EMMA inhibitors will help as well. (7) Elevated troponin Is this a current diagnosis for this admission?: Yes Plan: She experienced minimal elevation in her troponins but these have receded. - Time Time Spent with patient: 15-24 minutes Medications reviewed and adjusted accordingly: Yes Anticipated Discharge Disposition: Home with Home Health Anticipated Discharge Timeframe: within 72 hours
[2019-10-22] MEDS ORDERED: PROMETHAZINE HCL 25 MG TABLET PO PRN (14:49)
[2019-10-22] MEDS ORDERED: (PENDING PHARMACY ID) (Insulin Aspart [Novolog Flexpen] 15 UNITS) SQ SCH (16:00)
[2019-10-22] MEDS: INSULIN LISPRO 100 UNIT/ML 3 ML VIAL SUBCUT SCH ×2 (16:11→23:04)
[2019-10-22] MEDS: APIXABAN 2.5 MG TABLET PO SCH (17:47)
--- NOTE | 2019-10-22 18:00 | RADIOLOGY REPORT (SQ) ---
EXAM DESCRIPTION: VENOUS UNILATERAL LOWER IMAGES COMPLETED DATE/TIME: 10/22/2019 5:03 pm REASON FOR STUDY: LLE swelling N30.00 ACUTE CYSTITIS WITHOUT HEMATURIA COMPARISON: None. TECHNIQUE: Dynamic and static garzon scale and color images acquired of the left leg venous system. Se lected spectral images acquired with additional compression and augmentation maneuvers. The contralat eral common femoral vein and saphenofemoral junction were also imaged. Images stored on PACS. LIMITATIONS: None. FINDINGS: COMMON FEMORAL: Normal phasicity, compression and augmentation. No visualized echogenic ma terial on garzon scale. No defects on color images. FEMORAL: Normal compression and augmentation. No visualized echogenic material on garzon scale. No defe cts on color images. POPLITEAL: Normal compression, augmentation. No visualized echogenic material on garzon scale. No defec ts on color images. CALF VESSELS: Normal compression, augmentation. No visualized echogenic material on garzon scale. No de fects on color images. GSV and SSV: Normal compression, augmentation. No visualized echogenic material on garzon scale. No def ects on color images. ANY DEEP VENOUS INSUFFICIENCY: Not evaluated. ANY EVIDENCE OF POPLITEAL CYST: No. OTHER: No other significant finding. CONTRALATERAL COMMON FEMORAL VEIN AND SAPHENOFEMORAL JUNCTION: Normal phasicity, compression and augmentation. No visualized echogenic material on garzon scale. No de fects on color images. IMPRESSION: NO EVIDENCE DVT OR SVT IN THE LEFT LEG. TECHNICAL DOCUMENTATION: JOB ID: [id number] 2010 [employer]- All Rights Reserved Reading location - IP/workstation name: [email or web address]
[2019-10-22] MEDS ORDERED: INSULIN LISPRO 100 UNIT/ML 3 ML VIAL SUBCUT ONE (18:30)
--- NOTE | 2019-10-22 18:33 | PDOC CONSULTATION ---
Consultation-Blank Consultation: CARDIOLOGY CONSULTATION by Dr. Andre Baker on 10/22/2019. Patient seen at 4 PM. 60 minutes spent with patient more than 50% of time spent in direct patient care. CONSULT REQUESTING PHYSICIAN: [facility]ivel, [facility]. REASON FOR CONSULTATION: Patient with atrial fibrillation of questionable duration. HISTORY OF PRESENT ILLNESS: Past Medical History Cardiac Medical History: Reports: Congestive Heart Failure, Hyperlipidema, Hypertension Pulmonary Medical History: Reports: Asthma, Pneumonia. Also she denies COPD on examination the patient has a significant COPD. Endocrine Medical History: Reports: Diabetes Mellitus Type 2 Musculoskeletal: History of rheumatoid arthritis patient on methotrexate. Past Surgical History Past Surgical History: Reports: Appendectomy, Cholecystectomy, Hysterectomy, Orthopedic Surgery - right knee replacement HOME MEDICATIONS: Acetaminophen [Acetaminophen Extra Strength] 1,000 mg PO Q4HP PRN 10/22/19 Amlodipine Besylate [Norvasc 10 mg Tablet] 10 mg PO QAM 10/22/19 Carvedilol [Coreg 3.125 mg Tablet] 3.125 mg PO Q12 10/22/19 Escitalopram Oxalate [Lexapro 10 mg Tablet] 10 mg PO QAM 10/22/19 Folic Acid [FA-8] 0.8 mg PO QAM 10/22/19 Gabapentin [Neurontin 300 mg Capsule] 300 mg PO Q12 10/22/19 Insulin Aspart [Novolog Flexpen] 15 units SQ AC 10/22/19 Insulin Detemir [Levemir Insulin 100 units/mL Insulin Pen] 60 units SQ Q12 10/22/19 Methotrexate Sodium [Rheumatrex 2.5 mg Tablet] 7.5 mg PO WE 10/22/19 Pantoprazole Sodium [Protonix [address] Tablet] 40 mg PO QAM 10/22/19 Ranitidine HCl [Zantac] 150 mg PO DAILYP PRN 10/22/19 Spironolactone [Aldactone 25 mg Tablet] 25 mg PO QAM 10/22/19 Resuscitation STATUS: The patient is a full code. Her daughter is a surrogate healthcare decision maker. Social History Smoking Status: Never Smoker Current Medications Generic Name Dose Route Start Last Admin Trade Name Freq PRN Reason Stop Dose Admin Acetaminophen 325 mg 10/22/19 03:44 10/22/19 21:14 Tylenol 325 Mg Tablet PO 11/21/19 03:43 325 mg Q4HP PRN Administration FEVER >101 Albuterol/Ipratropium 3 ml 10/22/19 08:00 10/22/19 20:17 Duoneb 3 Ml Ampul NEB 11/21/19 07:59 3 ml [id number] QUANG Administration Albuterol/Ipratropium 3 ml 10/22/19 06:32 Duoneb 3 Ml Ampul NEB 11/21/19 06:30 [id number] PRN SHORTNESS OF BREATH Amlodipine Besylate 10 mg 10/23/19 08:00 Norvasc 10 Mg Tablet PO 11/22/19 07:59 QAM QUANG Apixaban 2.5 mg 10/22/19 18:00 10/22/19 17:47 Eliquis 2.5 Mg Tablet PO 11/21/19 17:59 2.5 mg BID QUANG Administration Aspirin 81 mg 10/22/19 10:00 10/22/19 09:36 Aspirin 81 Mg Chewable Tablet PO 11/21/19 09:59 81 mg DAILY QUANG Administration Carvedilol 3.125 mg 10/22/19 22:00 10/22/19 21:14 Coreg 3.125 Mg Tablet PO 11/21/19 21:59 3.125 mg Q12 QUANG Administration Dextrose 12.5 gm 10/22/19 10:00 Dextrose Inj 50% Syringe (25 Gm/50 Ml) IV 11/21/19 09:59 PRN PRN FOR BG 50-69 IN ALERT PATIENT Protocol Dextrose 25 gm 10/22/19 10:00 Dextrose Inj 50% Syringe (25 Gm/50 Ml) IV 11/21/19 09:59 PRN PRN PER PROTOCOL Protocol Docusate Sodium 100 mg 10/22/19 10:00 10/22/19 09:36 Colace 100 Mg Capsule PO 11/21/19 09:59 100 mg DAILY QUANG Administration Escitalopram Oxalate 10 mg 10/23/19 08:00 Lexapro 10 Mg Tablet PO 11/22/19 07:59 QAM QUANG Famotidine 20 mg 10/22/19 10:00 10/22/19 09:36 Pepcid 20 Mg Tablet PO 11/21/19 09:59 20 mg DAILY QUANG Administration Furosemide 20 mg 10/22/19 10:00 10/22/19 09:35 Lasix Inj/Pf 20 Mg/2 Ml Sdv IV 11/21/19 09:59 20 mg DAILY QUANG Administration Gabapentin 300 mg 10/22/19 22:00 10/22/19 21:14 Neurontin 300 Mg Capsule PO 11/21/19 21:59 300 mg Q12 QUANG Administration Glucagon 1 mg 10/22/19 10:00 Glucagen Inj 1 Mg Vial IM 11/21/19 09:59 PRN PRN EVALUATE FOR BG < 70 Protocol Glucose 15 gm 10/22/19 10:00 Glutose 40% Gel 15 Gm Tube PO 11/21/19 09:59 PRN PRN FOR BG 50-69 IN ALERT PATIENT Protocol Glucose 30 gm 10/22/19 10:00 Glutose 40% Gel 15 Gm Tube PO 11/21/19 09:59 PRN PRN FOR BG < 50 IN ALERT PATIENT Protocol Insulin Glargine 50 unit 10/22/19 22:00 10/22/19 23:09 Lantus Insulin 100 Unit/1 Ml 10 Ml SUBCUT 11/21/19 21:59 50 unit Q12 QUANG Administration Insulin Human Lispro 15 unit 10/22/19 16:00 10/22/19 16:11 Humalog Insulin 100 Unit/1 Ml 3 Ml Vial SUBCUT 11/21/19 15:59 15 unit AC QUANG Administration Insulin Human Lispro 0 - 16 unit 10/22/19 22:00 10/22/19 23:04 Humalog Insulin 100 Unit/1 Ml 3 Ml Vial SUBCUT 11/21/19 21:59 10 unit ACHS QUANG Administration Protocol Magnesium Hydroxide 30 ml 10/22/19 03:44 Milk Of Magnesia 30 Ml Udcup PO 11/21/19 03:43 HSP PRN FOR CONSTIPATION Methotrexate 7.5 mg 10/23/19 10:00 Rheumatrex 2.5 Mg Tablet PO 11/22/19 09:59 WE QUANG Methylprednisolone Sodium Succinate 40 mg 10/22/19 06:00 10/22/19 21:15 Solu-Medrol Inj/Pf 40 Mg/1 Ml Sdv IV 11/21/19 05:59 40 mg Q8 QUANG Administration Metoprolol Tartrate 2.5 mg 10/22/19 03:43 Lopressor Inj/Pf 5 Mg/5 Ml Sdv IV 11/21/19 03:42 Q6HP PRN Give For Hr > [130] Pantoprazole Sodium 40 mg 10/23/19 08:[address] Tablet PO 11/22/19 07:59 QAM [facility], [facility]–1983 Promethazine HCl 12.5 mg 10/22/19 14:49 Phenergan 25 Mg Tablet PO 11/21/19 14:48 Q4HP PRN UNRESOLVED NAUSEA/VOMITING Spironolactone 25 mg 10/23/19 08:00 Aldactone 25 Mg Tablet PO 11/22/19 07:59 QAM [facility], [facility]–1983 Temazepam 7.5 mg 10/22/19 03:44 Restoril 7.5 Mg Capsule PO 10/29/19 03:43 HSP PRN SLEEP OR INSOMNIA Discontinued Medications Generic Name Dose Route Start Last Admin Trade Name Freq PRN Reason Stop Dose Admin Albuterol/Ipratropium 3 ml 10/21/19 22:43 10/21/19 22:52 Duoneb 3 Ml Ampul NEB 10/21/19 22:44 3 ml NOW ONE Administration Albuterol/Ipratropium 3 ml 10/22/19 08:00 Duoneb 3 Ml Ampul NEB 11/21/19 07:59 RTQ6 [facility]1983 Enoxaparin Sodium 75 mg 10/22/19 03:09 10/22/19 03:43 Lovenox Inj 80 Mg/0.8 Ml Disp.Syrin SUBCUT 10/22/19 03:10 75 mg ONCE ONE Administration Heparin Sodium (Porcine) 5,000 unit 10/22/19 22:00 Heparin Inj 5,000 Units/Ml 1 Ml Vial SUBCUT 11/21/19 21:59 Q8 [facility]1983 Magnesium Sulfate/Dextrose 1 gm in 100 mls @ 100 mls/hr 10/21/19 22:45 10/21/19 23:57 Magnesium Sulfate Rtu-D5w 1 Gm/100 Ml Premix IV 10/21/19 23:44 Infused NOW ONE Infusion Insulin Human Lispro 14 unit 10/22/19 18:30 10/22/19 18:21 Humalog Insulin 100 Unit/1 Ml 3 Ml Vial SUBCUT 10/22/19 18:31 14 unit NOW ONE Administration Insulin Human Regular Confirm 10/22/19 09:33 10/22/19 12:50 Humulin R (Pyxis) Insulin 100 Unit/Ml 3ml Administered 10/22/19 09:34 Not Given Dose 1 unit .ROUTE .STK-MED ONE Insulin Human Regular 0 - 12 unit 10/22/19 11:00 10/22/19 16:12 Humulin R (Pyxis) Insulin 100 Unit/Ml 3ml SUBCUT 11/21/19 10:59 3 unit ACHS QUANG Administration Protocol Methylprednisolone Sodium Succinate 125 mg 10/21/19 22:42 10/21/19 22:52 Solu-Medrol Inj/Pf 125 Mg/2 Ml Sdv IV 10/21/19 22:43 125 mg NOW ONE Administration Ondansetron HCl 4 mg 10/22/19 03:44 Zofran Inj/Pf 4 Mg/2 Ml Sdv IV 11/21/19 03:43 Q4HP PRN FOR NAUSEA/VOMITING Family History Family History: Reviewed & Not Pertinent Parental Family History Reviewed: Yes Children Family History Reviewed: Yes Sibling(s) Family History Reviewed.: Yes Medication/Allergy Allergies/Adverse Reactions: codeine Allergy (Verified 07/24/18 14:52) Review of Systems Review of Systems: PHYSICAL EXAMINATION: The patient is mildly overweight. At present in no acute distress. But does become short of breath with minimal activity like 20 sit up from a lying down position in bed. Selected Entries 10/22/19 15:56 Temperature 98.0 F Temperature Oral Source Pulse Rate 76 Respiratory 22 H Rate Blood Pressure 124/42 L Blood Pressure 69 Mean BP Location Left Arm BP Position Supine O2 Sat by Pulse 100 Oximetry Oxygen Flow 2.00 Rate Oxygen Delivery Nasal Cannula Method HEAD: Is atraumatic normocephalic. EYES: Pupils are equal round regular reactive light accommodation. Extraocular movements are normal. There is no conjunctival pallor. There is no scleral icterus. EARS: Tympanic membranes are intact. External auditory canals are clear. NOSE: There is no deviated nasal septum. There is no inflammation nasal mucous membrane. MOUTH: Mucous membranes of mouth are moist. Tongue is moist there is no ulcers. There is no bleeding from the gums. THROAT: There is no redness of the oropharynx. There is no exudates. SKIN: There is no skin rashes. There is no skin lesions. There is no petechia or ecchymosis. NECK: Is supple. There is no JVD. Carotids are equal there is no bruits. There is no lymphadenopathy. There is no goiter. There is no accessory muscles of respiration use. Trachea central. Was lungs: Shows diminished diminished air entry and prolonged expiration. There is no rhonchi wheezing. HEART: S1-S2 is heard S1 is a variable intensity. There is systolic murmur left sternal border and the apex there is no rub. ABDOMEN: Soft. Nontender. There is no hepatosplenomegaly. Bowel sounds are well heard. EXTREMITIES: Femorals are slightly diminished. There is no femoral bruits. Leg pulses are diminished. There is no DVT cellulitis. THERE is no cyanosis or clubbing. Capillary refill is normal. 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 Patient is conscious awake alert oriented x3 with no focal deficit. PSYCHIATRIC: The patient is mildly confused. He has memory impairment. The patient does not appear to be agitated or anxious. EKG: Atrial Fibrillation with Left Bundle Branch Block Pattern. Labs- Entire Visit 10/21/19 10/21/19 10/21/19 22:27 22:27 22:27 WBC 9.1 RBC 4.20 Hgb 13.1 Hct 38.5 MCV 92 MCH 31.3 MCHC 34.2 RDW 15.5 H Plt Count 225 Lymph % (Auto) 22.7 [place] % (Auto) 7.4 Eos % (Auto) 1.7 Baso % (Auto) 1.4 Absolute Neuts (auto) 6.1 Absolute Lymphs (auto) 2.1 Absolute Monos (auto) 0.7 Absolute Eos (auto) 0.2 Absolute Basos (auto) 0.1 Seg Neutrophils % 66.8 Sodium 140.9 Potassium 5.0 Chloride 106 Carbon Dioxide 26 Anion Gap 9 BUN 27 H Creatinine 1.40 H Est GFR ( Amer) 43 L Est GFR (MDRD) Non-Af 35 L Glucose 138 H POC Glucose Calcium 9.9 Total Bilirubin 0.8 Direct Bilirubin 0.3 Neonat Total Bilirubin Not Reportable Neonat Direct Bilirubin Not Reportable Neonat Indirect Bili Not Reportable AST 29 ALT 18 Alkaline Phosphatase 96 Troponin I 0.035 NT-Pro-B Natriuret Pep 5830 H Total Protein 7.7 Albumin 4.7 Urine Color Urine Appearance Urine pH Ur Specific [place] Urine Protein Urine Glucose (UA) Urine Ketones Urine Blood Urine Nitrite Urine Bilirubin Urine Urobilinogen Ur Leukocyte Esterase Urine WBC (Auto) Urine RBC (Auto) U Hyaline Cast (Auto) Squamous Epi Cells Auto Urine Mucus (Auto) Urine Ascorbic Acid 10/22/19 10/22/19 10/22/19 01:46 05:50 09:00 WBC RBC Hgb Hct MCV MCH MCHC RDW Plt Count Lymph % (Auto) [place] % (Auto) Eos % (Auto) Baso % (Auto) Absolute Neuts (auto) Absolute Lymphs (auto) Absolute Monos (auto) Absolute Eos (auto) Absolute Basos (auto) Seg Neutrophils % Sodium Potassium Chloride Carbon Dioxide Anion Gap BUN Creatinine Est GFR ( Amer) Est GFR (MDRD) Non-Af Glucose POC Glucose Calcium Total Bilirubin Direct Bilirubin Neonat Total Bilirubin Neonat Direct Bilirubin Neonat Indirect Bili AST ALT Alkaline Phosphatase Troponin I 0.038 0.030 NT-Pro-B Natriuret Pep Total Protein Albumin Urine Color YELLOW Urine Appearance SLIGHTLY-CLOUDY Urine pH 5.0 Ur Specific [place] 1.017 Urine Protein 100 H Urine Glucose (UA) 50 H Urine Ketones NEGATIVE Urine Blood SMALL H Urine Nitrite NEGATIVE Urine Bilirubin NEGATIVE Urine Urobilinogen NEGATIVE Ur Leukocyte Esterase MODERATE H Urine WBC (Auto) 8 Urine RBC (Auto) 1 U Hyaline Cast (Auto) 6 Squamous Epi Cells Auto <1 Urine Mucus (Auto) RARE Urine Ascorbic Acid NEGATIVE 10/22/19 10/22/19 10/22/19 09:20 11:32 17:48 WBC RBC Hgb Hct MCV MCH MCHC RDW Plt Count Lymph % (Auto) [place] % (Auto) Eos % (Auto) Baso % (Auto) Absolute Neuts (auto) Absolute Lymphs (auto) Absolute Monos (auto) Absolute Eos (auto) Absolute Basos (auto) Seg Neutrophils % Sodium Potassium Chloride Carbon Dioxide Anion Gap BUN Creatinine Est GFR ( Amer) Est GFR (MDRD) Non-Af Glucose POC Glucose 313 H 416 H* 414 H* Calcium Total Bilirubin Direct Bilirubin Neonat Total Bilirubin Neonat Direct Bilirubin Neonat Indirect Bili AST ALT Alkaline Phosphatase Troponin I NT-Pro-B Natriuret Pep Total Protein Albumin Urine Color Urine Appearance Urine pH Ur Specific [place] Urine Protein Urine Glucose (UA) Urine Ketones Urine Blood Urine Nitrite Urine Bilirubin Urine Urobilinogen Ur Leukocyte Esterase Urine WBC (Auto) Urine RBC (Auto) U Hyaline Cast (Auto) Squamous Epi Cells Auto Urine Mucus (Auto) Urine Ascorbic Acid 10/22/19 21:26 WBC RBC Hgb Hct MCV MCH MCHC RDW Plt Count Lymph % (Auto) [place] % (Auto) Eos % (Auto) Baso % (Auto) Absolute Neuts (auto) Absolute Lymphs (auto) Absolute Monos (auto) Absolute Eos (auto) Absolute Basos (auto) Seg Neutrophils % Sodium Potassium Chloride Carbon Dioxide Anion Gap BUN Creatinine Est GFR ( Amer) Est GFR (MDRD) Non-Af Glucose POC Glucose 280 H Calcium Total Bilirubin Direct Bilirubin Neonat Total Bilirubin Neonat Direct Bilirubin Neonat Indirect Bili AST ALT Alkaline Phosphatase Troponin I NT-Pro-B Natriuret Pep Total Protein Albumin Urine Color Urine Appearance Urine pH Ur Specific [place] Urine Protein Urine Glucose (UA) Urine Ketones Urine Blood Urine Nitrite Urine Bilirubin Urine Urobilinogen Ur Leukocyte Esterase Urine WBC (Auto) Urine RBC (Auto) U Hyaline Cast (Auto) Squamous Epi Cells Auto Urine Mucus (Auto) Urine Ascorbic Acid Chest X-Ray 10/21/19 22:23 IMPRESSION: Cardiomegaly with bibasilar airspace opacities. copyright 2010 [employer]- All Rights Reserved Venous Doppler Study 10/22/19 03:42 IMPRESSION: NO EVIDENCE DVT OR SVT IN THE LEFT LEG. IMPRESSION/RECOMMENDATION: 1. Atrial fibrillation with controlled ventricular response.? Duration. The patient's corrected Butch vacs2 score is 5 hence chronic anticoagulation is indicated. But in view of the patient's advanced age and the patient's renal insufficiency would recommend putting the patient on his lower dose of Eliquis that is 2.5 mg p.o. twice daily. Have discussed the benefits risks and the use of Eliquis and stroke prophylaxis with the patient and patient's granddaughter. They are aware of bleeding complications. On questioning the patient the patient states in the past she was told that she needs to be on aspirin hence am wondering whether this is chronic atrial fibrillation or paroxysmal atrial fibrillation. But cannot be sure unless we have the records. Continue beta- kelly. 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 2. Acute exacerbation of COPD/possible bibasilar pneumonia: Continue antibiotics and anti-COPD medication. 3. History of asthma. 4. Hypertension: Blood pressure well controlled. 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 6. Chronic kidney disease stage III: 7. History of congestive heart failure systolic versus diastolic. 8. Rheumatoid arthritis: Note patient is on methotrexate. I have recommended that the patient revisit this medication since the patient's renal function is compromised. 9. Left bundle branch block pattern most likely chronic. Medications reviewed. Medical regimen and management plan discussed with attending provider on the case. Medical decision making is of high complexity. 60 minutes spent as patient with more than 50% of the time spent in direct patient care.
[2019-10-22] MEDS: GABAPENTIN 300 MG CAPSULE PO SCH (21:14)
[2019-10-22] MEDS: ACETAMINOPHEN 325 MG TABLET PO PRN (21:14)
[2019-10-22] MEDS: CARVEDILOL 3.125 MG TABLET PO SCH (21:14)
[2019-10-22] MEDS ORDERED: HEPARIN SOD (PORCINE) 5,000 UNIT/ML 1 ML VIAL SUBCUT SCH (22:00)
[2019-10-22] MEDS: INSULIN GLARGINE,HUM.REC.ANLOG 1,000 UNIT/10 ML VIAL SUBCUT SCH (23:09)
[2019-10-23 05:23] LABS: ABSOLUTE LYMPHOCYTES (AUTO) 0.9 10^3/uL (0.5-4.7); ABSOLUTE MONOCYTES (AUTO) 0.3 10^3/uL (0.1-1.4); ABSOLUTE NEUT (AUTO) 9.1 10^3/uL (1.7-8.2); BASOPHILS % (AUTO) 0.1 % (0-2); HEMATOCRIT 31.3 % (36.0-47.0); LYMPHOCYTES % (AUTO) 9.1 % (13-45); MEAN CORPUSCULAR HEMOGLOBIN 31.1 pg (27.0-33.4); MEAN CORPUSCULAR HGB CONC 33.5 g/dL (32.0-36.0); MEAN CORPUSCULAR VOLUME 93 fl (80-97); PLATELET COUNT 165 10^3/uL (150-450); RED BLOOD COUNT 3.37 10^6/uL (3.72-5.28); RED CELL DISTRIBUTION WIDTH 15.8 % (11.5-14.0); SEGMENTED NEUTROPHILS % (AUTO) 87.8 % (42-78); TOTAL CELLS COUNTED % (AUTO) 100 %; WHITE BLOOD COUNT 10.4 10^3/uL (4.0-10.5)
[2019-10-23 05:24] LABS: HEMOGLOBIN 10.5 g/dL (12.0-15.5)
[2019-10-23] MEDS: METHYLPREDNISOLONE INJ 40 MG/1 ML SDV IV SCH ×3 (05:43→21:33)
[2019-10-23] MEDS: INSULIN LISPRO 100 UNIT/ML 3 ML VIAL SUBCUT SCH ×7 (07:50→21:33)
[2019-10-23] MEDS ORDERED: AMLODIPINE BESYLATE 10 MG TABLET PO SCH (08:00)
[2019-10-23] MEDS: IPRATROPIUM/ALBUTEROL 0.5-2.5 MG/3 ML AMPUL NEB SCH ×3 (08:25→20:39)
[2019-10-23] MEDS: GABAPENTIN 300 MG CAPSULE PO SCH ×2 (09:32→21:33)
[2019-10-23] MEDS: DOCUSATE SODIUM 100 MG CAPSULE PO SCH (09:32)
[2019-10-23] MEDS: APIXABAN 2.5 MG TABLET PO SCH ×2 (09:32→17:06)
[2019-10-23] MEDS: FUROSEMIDE INJ/PF 20 MG/2 ML SDV IV SCH ×2 (09:32→17:07)
[2019-10-23] MEDS: FAMOTIDINE 20 MG TABLET PO SCH (09:32)
[2019-10-23] MEDS: CARVEDILOL 3.125 MG TABLET PO SCH ×2 (09:32→21:33)
[2019-10-23] MEDS: INSULIN GLARGINE,HUM.REC.ANLOG 1,000 UNIT/10 ML VIAL SUBCUT SCH ×2 (09:32→21:40)
[2019-10-23] MEDS: ASPIRIN 81 MG TABLET, CHEWABLE PO SCH (09:32)
[2019-10-23] MEDS: ESCITALOPRAM OXALATE 10 MG TABLET PO SCH (09:36)
[2019-10-23] MEDS: PANTOPRAZOLE SODIUM 40 MG TABLET.DR PO SCH (09:36)
[2019-10-23] MEDS: SPIRONOLACTONE 25 MG TABLET PO SCH (09:36)
[2019-10-23] MEDS ORDERED: METHOTREXATE SODIUM 2.5 MG TABLET PO SCH (10:00)
[2019-10-23] MEDS ORDERED: IPRATROPIUM/ALBUTEROL 0.5-2.5 MG/3 ML AMPUL NEB PRN (12:40)
[2019-10-23] MEDS ORDERED: BISACODYL 5 MG TABEC PO PRN (12:52)
--- NOTE | 2019-10-23 13:02 | PDOC PROGRESS REPORT ---
Subjective Progress Note for:: 10/23/19 Subjective:: Still markedly short of breath with minimal exertion. Required a short window of BiPAP earlier today. This is likely a combination of progression of her COPD/asthma along with acute on chronic combined systolic and diastolic heart failure. Reason For Visit: ACUTE RESPIRATORY FAILURE,ACUTE CHF EXACERBATION, Physical Exam Vital Signs: Temp Pulse Resp BP Pulse Ox 98.1 F 76 19 117/50 L 99 10/23/19 08:48 10/23/19 08:25 10/23/19 08:25 10/23/19 07:29 10/23/19 08:25 Intake & Output 10/22/19 10/23/19 10/24/19 06:59 06:59 06:59 Intake Total 100 780 Balance 100 780 Weight 76.1 kg 76.1 kg Results Laboratory Results: 10/23/19 04:37 10/21/19 22:27 10/23/19 04:37 WBC 10.4 RBC 3.37 L Hgb 10.5 L D Hct 31.3 L MCV 93 MCH 31.1 MCHC 33.5 RDW 15.8 H Plt Count 165 Seg Neutrophils % 87.8 H 10/21/19 10/22/19 10/22/19 22:27 01:46 05:50 Troponin I 0.035 0.038 0.030 NT-Pro-B Natriuret Pep 5830 H Impressions: Chest X-Ray 10/21/19 22:23 IMPRESSION: Cardiomegaly with bibasilar airspace opacities. copyright 2011 [employer]- All Rights Reserved Venous Doppler Study 10/22/19 03:42 IMPRESSION: NO EVIDENCE DVT OR SVT IN THE LEFT LEG. Assessment and Plan - Diagnosis (1) New onset atrial fibrillation Is this a current diagnosis for this admission?: Yes (3) Acute kidney injury superimposed on CKD Is this a current diagnosis for this admission?: Yes (4) Elevated troponin Is this a current diagnosis for this admission?: Yes (5) Acute respiratory failure with hypoxia Is this a current diagnosis for this admission?: Yes (6) Acute on chronic combined systolic (congestive) and diastolic (congestive) heart failure Is this a current diagnosis for this admission?: Yes
--- NOTE | 2019-10-23 13:53 | PDOC PROGRESS REPORT ---
Subjective Progress Note for:: 10/23/19 Subjective:: Resting comfortably but does admit to significant shortness of breath with minimal exertion. She also reports constipation. Reason For Visit: ACUTE RESPIRATORY FAILURE,ACUTE CHF EXACERBATION, Physical Exam Vital Signs: Temp Pulse Resp BP Pulse Ox 98.1 F 76 19 117/50 L 99 10/23/19 08:48 10/23/19 08:25 10/23/19 08:25 10/23/19 07:29 10/23/19 08:25 Intake & Output 10/22/19 10/23/19 10/24/19 06:59 06:59 06:59 Intake Total 100 780 Balance 100 780 Weight 76.1 kg 76.1 kg General appearance: PRESENT: no acute distress, cooperative, well-developed, other - Nasal cannula in place Head exam: PRESENT: atraumatic, normocephalic Eye exam: PRESENT: conjunctiva pink. ABSENT: scleral icterus Ear exam: PRESENT: normal external ear exam. ABSENT: bleeding, drainage Mouth exam: PRESENT: moist, tongue midline Respiratory exam: PRESENT: clear to auscultation edgar, prolonged expiratory phas, symmetrical, unlabored - At rest. Staff reports tachypnea with exertion.. ABSENT: accessory muscle use, rales, rhonchi, tachypnea, wheezes Cardiovascular exam: PRESENT: RRR, +S1, +S2 GI/Abdominal exam: PRESENT: normal bowel sounds, soft. ABSENT: distended, guarding, tenderness Rectal exam: PRESENT: deferred Gentrourinary exam: ABSENT: indwelling catheter Extremities exam: ABSENT: pedal edema Musculoskeletal exam: PRESENT: ambulatory - Limited by decreased exercise capacity, normal inspection. ABSENT: deformity, dislocation Neurological exam: PRESENT: alert, awake, oriented to person, oriented to place, oriented to situation, CN II-XII grossly intact Psychiatric exam: PRESENT: appropriate affect. ABSENT: agitated, anxious Focused psych exam: ABSENT: delusional, paranoid, restlessness Skin exam: PRESENT: dry, normal color, warm Results Laboratory Results: 10/23/19 04:37 10/21/19 22:27 10/23/19 04:37 WBC 10.4 RBC 3.37 L Hgb 10.5 L D Hct 31.3 L MCV 93 MCH 31.1 MCHC 33.5 RDW 15.8 H Plt Count 165 Seg Neutrophils % 87.8 H 10/21/19 10/22/19 10/22/19 22:27 01:46 05:50 Troponin I 0.035 0.038 0.030 NT-Pro-B Natriuret Pep 5830 H Impressions: Chest X-Ray 10/21/19 22:23 IMPRESSION: Cardiomegaly with bibasilar airspace opacities. copyright 2010 [employer]- All Rights Reserved Venous Doppler Study 10/22/19 03:42 IMPRESSION: NO EVIDENCE DVT OR SVT IN THE LEFT LEG. Assessment and Plan - Diagnosis (1) Acute respiratory failure with hypoxia Is this a current diagnosis for this admission?: Yes Plan: The patient uses Symbicort at home. She told me today that she also has a nebulizer machine. She will likely qualify for home oxygen. I have ordered the oximetry study. We will continue systemic steroids and scheduled as well as as needed nebulizer treatments. (2) Acute on chronic combined systolic (congestive) and diastolic (congestive) heart failure Is this a current diagnosis for this admission?: Yes Plan: I will change the amlodipine to lisinopril. In addition I will increase the furosemide slightly and monitor intake and output. No need for repeat echo at this time. Will benefit from outpatient cardiac rehab program. (3) Acute kidney injury superimposed on CKD Is this a current diagnosis for this admission?: Yes Plan: Renal function stable. Hopefully we can improve her function over the next day or 2. (4) Acute exacerbation of COPD with asthma Is this a current diagnosis for this admission?: Yes Plan: Continue nebulizer treatments as well as IV steroids. (5) New onset atrial fibrillation Is this a current diagnosis for this admission?: Yes Plan: Continue carvedilol and apixaban (6) Hyperglycemia due to diabetes mellitus Is this a current diagnosis for this admission?: Yes Plan: Improved glucose readings. Consider slight adjustment in Lantus based on sliding scale requirements. (7) Elevated troponin Is this a current diagnosis for this admission?: Yes Plan: She experienced minimal elevation in her troponins but these have receded. - Plan Summary Summary: 10/23/2019 I was able to have a 20-minute discussion with the patient's daughter prior to leaving for [place]. We reviewed the current pathology and medication changes. In addition we talked about post discharge plans. 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 She will also benefit from home health for senior living as well as physical therapy. - Time Time Spent with patient: 25-34 minutes Medications reviewed and adjusted accordingly: Yes Anticipated Discharge Disposition: Home with Home Health Anticipated Discharge Timeframe: within 72 hours
[2019-10-23] MEDS: ACETAMINOPHEN 325 MG TABLET PO PRN (21:32)
--- NOTE | 2019-10-23 22:19 | Progress Note ---
Provider Note Provider Note: CARDIOLOGY PROGRESS NOTE by Dr. Candice Hubbard on 10/23/2019. OBJECTIVE: The patient states her breathing is better. But she still requires oxygen. Question is whether the patient will need home oxygen. This is being worked up by the hospitalist. She denies any chest pain discomfort. She remains in atrial fibrillation with controlled ventricular response. There is no bleeding on Eliquis. There is no TIA CVA symptoms. We have a copy of the patient's echo in May 2018. That shows a ejection fraction of 55%. There was a mention of right ventricle systolic pressure calculated to be 32 mmHg. PHYSICAL EXAMINATION: The patient is mildly overweight. In no acute distress. Selected Entries 10/23/19 11:40 Temperature 97.9 F Temperature Oral Source Pulse Rate 73 Respiratory 20 Rate Blood Pressure 129/49 H Blood Pressure 75 Mean BP Location Left Arm BP Position Sitting O2 Sat by Pulse 100 Oximetry Oxygen Flow 2.00 Rate Oxygen Delivery Nasal Cannula Method HEAD: Is atraumatic normocephalic. EYES: Pupils are equal round regular reactive light accommodation. Extraocular movements are normal. There is no conjunctival pallor. There is no scleral icterus. EARS: Tympanic membranes are intact. External auditory canals are clear. NOSE: There is no deviated nasal septum. There is no inflammation nasal mucous membrane. MOUTH: Mucous membranes of mouth are moist. Tongue is moist there is no ulcers. There is no bleeding from the gums. THROAT: There is no redness of the oropharynx. There is no exudates. SKIN: There is no skin rashes. There is no skin lesions. There is no petechia or ecchymosis. NECK: Is supple. There is no JVD. Carotids are equal there is no bruits. There is no lymphadenopathy. There is no goiter. There is no accessory muscles of respiration use. Trachea central. Was lungs: Shows diminished diminished air entry and prolonged expiration. There is no rhonchi wheezing. HEART: S1-S2 is heard S1 is a variable intensity. There is systolic murmur left sternal border and the apex there is no rub. AB DOMEN: Soft. Nontender. There is no hepatosplenomegaly. Bowel sounds are well heard. EXTREMITIES: Femorals are slightly diminished. There is no femoral bruits. Leg pulses are diminished. There is no DVT cellulitis. THERE is no cyanosis or clubbing. Capillary refill is normal. RRTS:. Patient is conscious awake alert oriented x3 with no focal deficit. PSYCHIATRIC: The patient is mildly confused. He has memory impairment. The patient does not appear to be agitated or anxious. Chest X-Ray 10/21/19 22:23 IMPRESSION: Cardiomegaly with bibasilar airspace opacities. copyright 2010 [employer]- All Rights Reserved Venous Doppler Study 10/22/19 03:42 IMPRESSION: NO EVIDENCE DVT OR SVT IN THE LEFT LEG. Labs- All tests 24 hr 10/22/19 10/22/19 10/23/19 15:53 17:52 04:37 WBC 10.4 RBC 3.37 L Hgb 10.5 L D Hct 31.3 L MCV 93 MCH 31.1 MCHC 33.5 RDW 15.8 H Plt Count 165 Lymph % (Auto) 9.1 L Mcmullen % (Auto) 3.0 Eos % (Auto) 0.0 Baso % (Auto) 0.1 Absolute Neuts (auto) 9.1 H Absolute Lymphs (auto) 0.9 Absolute Monos (auto) 0.3 Absolute Eos (auto) 0.0 Absolute Basos (auto) 0.0 Seg Neutrophils % 87.8 H POC Glucose 470 H* 409 H* 10/23/19 10/23/19 10/23/19 06:41 10:48 15:58 WBC RBC Hgb Hct MCV MCH MCHC RDW Plt Count Lymph % (Auto) Mcmullen % (Auto) Eos % (Auto) Baso % (Auto) Absolute Neuts (auto) Absolute Lymphs (auto) Absolute Monos (auto) Absolute Eos (auto) Absolute Basos (auto) Seg Neutrophils % POC Glucose 256 H 211 H 101 10/23/19 21:24 WBC RBC Hgb Hct MCV MCH MCHC RDW Plt Count Lymph % (Auto) Mcmullen % (Auto) Eos % (Auto) Baso % (Auto) Absolute Neuts (auto) Absolute Lymphs (auto) Absolute Monos (auto) Absolute Eos (auto) Absolute Basos (auto) Seg Neutrophils % POC Glucose 75 IMPRESSION/RECOMMENDATION: 1. Atrial fibrillation with controlled ventricular response.? Duration. The patient's corrected Butch vacs2 score is 5 hence chronic anticoagulation is indicated. But in view of the patient's advanced age and the patient's renal insufficiency would recommend putting the patient on his lower dose of Eliquis that is 2.5 mg p.o. twice daily. Have discussed the benefits risks and the use of Eliquis and stroke prophylaxis with the patient and patient's granddaughter. They are aware of bleeding complications. On questioning the patient the patient states in the past she was told that she needs to be on aspirin hence am wondering whether this is chronic atrial fibrillation or paroxysmal atrial fibrillation. But cannot be sure unless we have the records. Continue beta- kelly. 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 2. Acute exacerbation of COPD/possible bibasilar pneumonia: Continue anti biotics and anti-COPD medication. 3. History of asthma. 4. Hypertension: Blood pressure well controlled. 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 6. Chronic kidney disease stage III: 7. History of congestive heart failure systolic versus diastolic. 8. Rheumatoid arthritis: Note patient is on methotrexate. I have recommended that the patient revisit this medication since the patient's renal function is compromised. 9. Left bundle branch block pattern most likely chronic. Medications reviewed. Medical regimen and management plan discussed with attending provider on the case. Medical decision making is of moderate complexity. 60 minutes spent as patient with more than 50% of the time spent in direct patient care.
[2019-10-24] MEDS: IPRATROPIUM/ALBUTEROL 0.5-2.5 MG/3 ML AMPUL NEB SCH ×3 (02:34→14:34)
[2019-10-24] MEDS: METHYLPREDNISOLONE INJ 40 MG/1 ML SDV IV SCH ×2 (06:15→14:54)
[2019-10-24] MEDS: SPIRONOLACTONE 25 MG TABLET PO SCH (07:45)
[2019-10-24] MEDS: ESCITALOPRAM OXALATE 10 MG TABLET PO SCH (07:45)
[2019-10-24] MEDS: INSULIN LISPRO 100 UNIT/ML 3 ML VIAL SUBCUT SCH ×6 (07:45→17:14)
[2019-10-24] MEDS: PANTOPRAZOLE SODIUM 40 MG TABLET.DR PO SCH (07:46)
[2019-10-24] MEDS: INSULIN GLARGINE,HUM.REC.ANLOG 1,000 UNIT/10 ML VIAL SUBCUT SCH (09:26)
[2019-10-24] MEDS: FUROSEMIDE INJ/PF 20 MG/2 ML SDV IV SCH (09:26)
[2019-10-24] MEDS: APIXABAN 2.5 MG TABLET PO SCH ×2 (09:27→17:15)
[2019-10-24] MEDS: ASPIRIN 81 MG TABLET, CHEWABLE PO SCH (09:27)
[2019-10-24] MEDS: CARVEDILOL 3.125 MG TABLET PO SCH (09:27)
[2019-10-24] MEDS: DOCUSATE SODIUM 100 MG CAPSULE PO SCH (09:27)
[2019-10-24] MEDS: FAMOTIDINE 20 MG TABLET PO SCH (09:27)
[2019-10-24] MEDS: GABAPENTIN 300 MG CAPSULE PO SCH (09:27)
[2019-10-24] MEDS ORDERED: LISINOPRIL 5 MG TABLET PO SCH (10:00)
--- NOTE | 2019-10-24 14:52 | PDOC DISCHARGE SUMMARY ---
Impression - Admit/DC Date/PCP Admission Date/Primary Care Provider: 10/23/19 12:53 Discharge Date: 10/24/19 - Discharge Diagnosis (1) Acute respiratory failure with hypoxia Is this a current diagnosis for this admission?: Yes (2) Acute on chronic combined systolic (congestive) and diastolic (congestive) heart failure Is this a current diagnosis for this admission?: Yes (3) Acute kidney injury superimposed on CKD Is this a current diagnosis for this admission?: Yes (4) Acute exacerbation of COPD with asthma Is this a current diagnosis for this admission?: Yes (5) New onset atrial fibrillation Is this a current diagnosis for this admission?: Yes (6) Hyperglycemia due to diabetes mellitus Is this a current diagnosis for this admission?: Yes (7) Elevated troponin Is this a current diagnosis for this admission?: Yes - Assessment Summary: 10/23/2019 I was able to have a 20-minute discussion with the patient's daughter prior to leaving for [place]. We reviewed the current pathology and medication changes. In addition we talked about post discharge plans. We are trying to incorporate outpatient cardiopulmonary rehab in addition to scheduling a follow-up with her check out clerk within the first 7 days after discharge. She will also benefit from home health for senior living as well as physical therapy. - Additional Information Resuscitation Status: Full Code Discharge Diet: Cardiac, Diabetic Discharge Activity: Activity As Tolerated, Balance Activity w/Rest, Weigh Daily Referrals: katarzyna murrell, [Other] (Patient is from out of town. And will follow up upon returning home.) Prescriptions: Ipratropium/Albuterol Sulfate [Duoneb 3 ml Ampul] 3 ml NEB RTQ3HP PRN #50 vial.neb PRN Reason: Apixaban [Eliquis 2.5 mg Tablet] 2.5 mg PO BID #30 tablet Furosemide [Lasix 40 mg Tablet] 40 mg PO QAM #30 tablet Home Medications: Acetaminophen [Acetaminophen Extra Strength] 1,000 mg PO Q4HP PRN 10/22/19 Amlodipine Besylate [Norvasc 10 mg Tablet] 10 mg PO QAM 10/22/19 Carvedilol [Coreg 3.125 mg Tablet] 3.125 mg PO Q12 10/22/19 Escitalopram Oxalate [Lexapro 10 mg Tablet] 10 mg PO QAM 10/22/19 Folic Acid [FA-8] 0.8 mg PO QAM 10/22/19 Gabapentin [Neurontin 300 mg Capsule] 300 mg PO Q12 10/22/19 Insulin Aspart [Novolog Flexpen] 15 units SQ AC 10/22/19 Insulin Detemir [Levemir Insulin 100 units/mL Insulin Pen] 60 units SQ Q12 03/11 Methotrexate Sodium [Rheumatrex 2.5 mg Tablet] 7.5 mg PO WE 10/22/19 Pantoprazole Sodium [Protonix [address] Tablet] 40 mg PO QAM 10/22/19 Ranitidine HCl [Zantac] 150 mg PO DAILYP PRN 10/22/19 Spironolactone [Aldactone 25 mg Tablet] 25 mg PO QAM 10/22/19 Apixaban [Eliquis 2.5 mg Tablet] 2.5 mg PO BID #30 tablet 10/24/19 Aspirin [Aspirin 81 mg Chewable Tablet] 81 mg PO DAILY tab.chew 10/24/19 Docusate Sodium [Colace 100 mg Capsule] 100 mg PO DAILY capsule 10/24/19 Furosemide [Lasix 40 mg Tablet] 40 mg PO QAM #30 tablet 10/24/19 Ipratropium/Albuterol Sulfate [Duoneb 3 ml Ampul] 3 ml NEB RTQ3HP PRN #50 vial.neb 10/24/19 History of Present Illiness History of Present Illness: LISS BHAGAT is a 89 year old female past medical history of CHF, hypertension, diabetes, COPD, who is visiting out of town per family, presenting to ED complaining of progressively worsening shortness of breath, for the last several days. She has also noted that her left lower extremity is swelling more than usual. In ED patient was noted to be tachypneic, hypoxic, elevated BNP and mildly elevated troponins, and A. fib RVR, patient was started on breathing treatments however patient was noted to drop her PO2 once off of BiPAP. Hospital was consulted for admission. On my encounter patient is comfortably sitting bed no apparent distress, wearing BiPAP, alert and oriented, very pleasant and cooperative with physical examination, patient is stating that she gets frequent hospitalization for CHF exacerbation but this time she feels more short of breath, she is stating that for some reason she is taken off of aspirin because she was told by her check out clerk that she does not need it, she said that she has some kind of heart rhythm problem however not sure if she has history of A. fib RVR, patient is stating that she is on several medication however does not recall the names, she is seeing a check out clerk Hospital Course Hospital Course: Remarkable hospital course. Initially it appeared that the patient would require home oxygen therapy. There is difficult to discern how much of this was her COPD and how much was heart failure. She continued to feel better daily. Successful diuresis. Today she was in fact on room air even while ambulating to the bathroom and her oxygen saturation stayed greater than 90%. She in fact is anxious to go home. She is stable and we are trying to arrange health when she returns to [place]. Physical Exam Vital Signs: Temp Pulse Resp BP Pulse Ox 97.7 F 80 16 138/48 H 100 10/24/19 11:01 10/24/19 14:34 10/24/19 14:34 10/24/19 11:01 10/24/19 14:34 Intake & Output 10/23/19 10/24/19 10/25/19 06:59 06:59 06:59 Intake Total 630 776 9670 Output Total 300 Balance 551 565 1493 Weight 76.1 kg 76.1 kg General appearance: PRESENT: no acute distress Respiratory exam: PRESENT: clear to auscultation edgar, symmetrical, unlabored. ABSENT: rales, rhonchi, tachypnea, wheezes Cardiovascular exam: PRESENT: irregular rhythm GI/Abdominal exam: PRESENT: normal bowel sounds, soft. ABSENT: tenderness Extremities exam: ABSENT: pedal edema Neurological exam: PRESENT: alert, awake, oriented to person, oriented to place, oriented to time, oriented to situation Psychiatric exam: PRESENT: appropriate affect. ABSENT: agitated, anxious Results Laboratory Results: WBC 10.4 10^3/uL (4.0-10.5) 10/23/19 04:37 RBC 3.37 10^6/uL (3.72-5.28) L 10/23/19 04:37 Hgb 10.5 g/dL (12.0-15.5) L D 10/23/19 04:37 Hct 31.3 % (36.0-47.0) L 10/23/19 04:37 MCV 93 fl (80-97) 10/23/19 04:37 MCH 31.1 pg (27.0-33.4) 10/23/19 04:37 MCHC 33.5 g/dL (32.0-36.0) 10/23/19 04:37 RDW 15.8 % (11.5-14.0) H 10/23/19 04:37 Plt Count 165 10^3/uL (150-450) 10/23/19 04:37 Lymph % (Auto) 9.1 % (13-45) L 10/23/19 04:37 Taylor % (Auto) 3.0 % (3-13) 10/23/19 04:37 Eos % (Auto) 0.0 % (0-6) 10/23/19 04:37 Baso % (Auto) 0.1 % (0-2) 10/23/19 04:37 Absolute Neuts (auto) 9.1 10^3/uL (1.7-8.2) H 10/23/19 04:37 Absolute Lymphs (auto) 0.9 10^3/uL (0.5-4.7) 10/23/19 04:37 Absolute Monos (auto) 0.3 10^3/uL (0.1-1.4) 10/23/19 04:37 Absolute Eos (auto) 0.0 10^3/uL (0.0-0.6) 10/23/19 04:37 Absolute Basos (auto) 0.0 10^3/uL (0.0-0.2) 10/23/19 04:37 Seg Neutrophils % 87.8 % (42-78) H 10/23/19 04:37 Sodium 140.9 mmol/L (137-145) 10/21/19 22:27 Potassium 5.0 mmol/L (3.6-5.0) 10/21/19 22:27 Chloride 106 mmol/L (98-107) 10/21/19 22:27 Carbon Dioxide 26 mmol/L (22-30) 10/21/19 22:27 Anion Gap 9 (5-19) 10/21/19 22:27 BUN 27 mg/dL (7-20) H 10/21/19 22:27 Creatinine 1.40 mg/dL (0.52-1.25) H 10/21/19 22:27 Est GFR ( Amer) 43 (>60) L 10/21/19 22:27 Est GFR (MDRD) Non-Af 35 (>60) L 10/21/19 22:27 Glucose 138 mg/dL (75-110) H 10/21/19 22:27 POC Glucose 161 mg/dL (70-110) H 10/24/19 11:03 Calcium 9.9 mg/dL (8.4-10.2) 10/21/19 22:27 Total Bilirubin 0.8 mg/dL (0.2-1.3) 10/21/19 22:27 Direct Bilirubin 0.3 mg/dL (0.0-0.4) 10/21/19 22:27 Neonat Total Bilirubin Not Reportable 10/21/19 22:27 Neonat Direct Bilirubin Not Reportable 10/21/19 22:27 Neonat Indirect Bili Not Reportable 10/21/19 22:27 AST 29 U/L (14-36) 10/21/19 22:27 ALT 18 U/L (<35) 10/21/19 22:27 Alkaline Phosphatase 96 U/L (38-126) 10/21/19 22:27 Troponin I 0.030 ng/mL 10/22/19 05:50 NT-Pro-B Natriuret Pep 5830 pg/mL (<450) H 10/21/19 22:27 Total Protein 7.7 g/dL (6.3-8.2) 10/21/19 22:27 Albumin 4.7 g/dL (3.5-5.0) 10/21/19 22:27 Urine Color YELLOW 10/22/19 09:00 Urine Appearance SLIGHTLY-CLOUDY 10/22/19 09:00 Urine pH 5.0 (5.0-9.0) 10/22/19 09:00 Ur Specific [place] 1.017 10/22/19 09:00 Urine Protein 100 mg/dL (NEGATIVE) H 10/22/19 09:00 Urine Glucose (UA) 50 mg/dL (NEGATIVE) H 10/22/19 09:00 Urine Ketones NEGATIVE mg/dL (NEGATIVE) 10/22/19 09:00 Urine Blood SMALL (NEGATIVE) H 10/22/19 09:00 Urine Nitrite NEGATIVE (NEGATIVE) 10/22/19 09:00 Urine Bilirubin NEGATIVE (NEGATIVE) 10/22/19 09:00 Urine Urobilinogen NEGATIVE mg/dL (<2.0) 10/22/19 09:00 Ur Leukocyte Esterase MODERATE (NEGATIVE) H 10/22/19 09:00 Urine WBC (Auto) 8 /HPF 10/22/19 09:00 Urine RBC (Auto) 1 /HPF 10/22/19 09:00 U Hyaline Cast (Auto) 6 /LPF 10/22/19 09:00 Squamous Epi Cells Auto <1 /HPF 10/22/19 09:00 Urine Mucus (Auto) RARE /LPF 10/22/19 09:00 Urine Ascorbic Acid NEGATIVE (NEGATIVE) 10/22/19 09:00 10/21/19 10/22/19 10/22/19 22:27 01:46 05:50 Troponin I 0.035 0.038 0.030 NT-Pro-B Natriuret Pep 5830 H Impressions: Chest X-Ray 10/21/19 22:23 IMPRESSION: Cardiomegaly with bibasilar airspace opacities. copyright 2011 [employer]- All Rights Reserved Venous Doppler Study 10/22/19 03:42 IMPRESSION: NO EVIDENCE DVT OR SVT IN THE LEFT LEG. Plan Health Concerns: New onset atrial fibrillation Plan of Treatment: New medications for her atrial fibrillation. Continue treatment for heart failure and COPD. Goals: Stabilization of cardiopulmonary status and complete recovery from this hospitalization Time Spent: Greater than 30 Minutes Stroke Is this a Stroke Patient?: No Acute Heart Failure - Is this a Heart Failure Patient?: Yes Documentation of LVEF assessment?: Yes - Results [facility] echocardiogram [facility] were faxed and placed in the patient's chart LVEF: LVEF Greater Than 40% Anticoagulant Therapy: Yes Anticoagulant Therapy Reason - Other: Atrial fibrillation Discharged on Evidence-Based Beta Blockers: Yes Discharged on ARNI?: No-Document Contraindications Reason(s) not discharged on ARNI: Impaired/worsening renal functions Discharged on ARB?: No-document contraindications Reason(s) not Discharged on ARB: Impaired/worsening renal functions Discharged on ACEI?: No, document contraindications Reason(s) not Discharged on ACEI: Impaied/worsening renal function For LVEF <35%, discharged on Aldosterone Antagonist?: N/A (LVEF > or = 35%) Follow-up Appointment scheduled within 7 days?: Yes
[2019-10-24 16:59] VITALS: BP 130/44
== END 2019-10-24 17:32 | disposition home health service (06) | DRG 682 ==
LOC: ER 22:11 → EH 10-22 03:15 → INTOOBSV 10-22 03:15 → 4W 10-22 07:53 → OBSVTOIN 10-23 12:53
PROVIDERS: ADMIT Internal Medicine; ATTEND Hospitalist
DX: I12.9 Hypertensive chronic kidney disease with stage 1 through stage 4 chronic kidney disease, or unspecified chronic kidney disease (principal); J96.01 Acute respiratory failure with hypoxia; I50.43 Acute on chronic combined systolic (congestive) and diastolic (congestive) heart failure; J44.1 Chronic obstructive pulmonary disease with (acute) exacerbation; N17.9 Acute kidney failure, unspecified; I48.0 Paroxysmal atrial fibrillation; Z79.4 Long term (current) use of insulin; R79.89 Other specified abnormal findings of blood chemistry; E11.22 Type 2 diabetes mellitus with diabetic chronic kidney disease; N18.3 Chronic kidney disease, stage 3 (moderate); Z90.49 Acquired absence of other specified parts of digestive tract; Z90.710 Acquired absence of both cervix and uterus; Z96.651 Presence of right artificial knee joint; Z88.6 Allergy status to analgesic agent; E11.65 Type 2 diabetes mellitus with hyperglycemia; I44.7 Left bundle-branch block, unspecified; E78.5 Hyperlipidemia, unspecified; Z79.899 Other long term (current) drug therapy; M06.9 Rheumatoid arthritis, unspecified
CPT/HCPCS: 36415; 71045; 80053; 81001; 82962; 83880; 84484; 85025; 87086; 93005; 93010; 93971; 94640; 94660; 94799; 96365; 96372; 96375; 99285; G0378; J1650; J1815; J1940; J2920; J2930; J3475; J3490; J8610